=== PATIENT | female | born 1990 | race Caucasian/White ===

== ENCOUNTER 2021-09-28 18:14 | Inpatient (IN) ==
[2021-09-28] MEDS ORDERED: SODIUM CHLORIDE 0.9% 1000ML 1,000 ML IV STA (18:29)
--- NOTE | 2021-09-28 18:39 | Emergency Department Note ---
Impression & Plan Bilateral hydronephrosis, Dysuria, Acute pyelonephritis in third trimester, antepartum ED Provider Note NAME: RETA VELAZCO AGE: 31 SEX: F : 1990 ARRIVES VIA: Walk-In INFORMANT: Patient, ED PROVIDER(S): Gennaro Burns DO CHIEF COMPLAINT: Flank pain HPI: The patient is a 31-year-old female who presented to emergency department for an evaluation of flank pain. The patient is 29 weeks . She started noticing dysuria frequency as well as left-sided flank pain. The patient denies having any vaginal bleeding or discharge. She denies having any chest pain or difficulty breathing. She has had no worsening swelling in her legs. The patient states that she called her [facility] physician and was instructed to come to the emergency department for an evaluation. She denies having any fever. She is had no cough. The patient states her pain is moderate at this time. She is not noticed any vomiting or diarrhea. She is had no exposures to COVID-19. ROS: See above HPI for pertinent positives & negatives. A total of 10 systems reviewed and were otherwise negative. PAST MEDICAL HISTORY: See Below PAST SURGICAL HISTORY: See Below FAMILY HISTORY: See Below SOCIAL HISTORY: See Below HOME MEDICATIONS: See Below ALLERGIES: See Below VITALS: See Below PHYSICAL EXAMINATION: GENERAL: Patient is awake alert in no acute distress patient is resting comfortably and showing no signs of anxiety EYES: The conjunctivae are clear. The pupils are round and reactive. EARS, NOSE, MOUTH AND THROAT: The nose is without any evidence of any deformity. Mucous membranes are moist. Tongue is midline. NECK: The neck is nontender and supple. RESPIRATORY: Normal respiratory effort is noted there is no evidence of wheezing rhonchi or rales CARDIOVASCULAR: Tachycardic rate with regular rhythm was noted. There is no definite murmur. GASTROINTESTINAL: The abdomen is gravid in appearance. There is no tenderness guarding rigidity noted BACK: No midline tenderness or or step-off noted range of motion in flexion extension as well as rotation no signs of muscle spasm noted MUSCULOSKELETAL/EXTREMITIES: There is no evidence of gross deformity full range of motion is noted in the hips and shoulders. SKIN: There is no obvious evidence of any rash. There are no petechiae, pallor or cyanosis noted. NEUROLOGIC: Patient is awake alert and oriented x3 MEDICAL DECISION MAKING: The patient is a 31-year-old female who is in her third trimester who presented to the emergency department for an evaluation of flank pain. The patient has had very severe flank pain which has worsened throughout the day. She presented to the emergency department for an evaluation. The patient had an ultrasound which revealed bilateral hydronephrosis. This is likely physiologic secondary to the patient's gravid uterus. She was treated with IV fluids. She was also treated with IV antibiotics because of dysuria and her urine dip. Urine culture was added to the labs. I discussed the patient's condition with the on-call [facility] physician. I also discussed his case with the on-call [facility] hospitalist. They have agreed to evaluate the patient in the emergency department for further management and disposition. Triage Nursing notes reviewed. Prior medical records reviewed Vital Signs: reviewed and remarkable for tachycardia. Differential diagnosis: Renal colic, UTI, appendicitis, diverticulitis, mesenteric ischemia, aortic pathology, infections, inflammatory bowel disease, PUD, biliary pathology, as well as other pathologies. ER treatment provided: See below Diagnostics interpreted by me: ECG: none Cardiac Monitoring: An order was placed for continuous cardiac monitoring. The monitor shows a rate of 122 bpm with sinus rhythm. Laboratory studies: As stated above and show below. Imaging studies: See below Consultation(s): I discussed this case with Dr. Doherty who is on for [facility]. I discussed this case with Dr. Araiza who is on-call for the [facility] hospitalist group. Past Med/Surg History Medical History Abdominal pain Constipation Hypothyroidism Infected cat bite Migraine headache Varicella vaccination Surgical History History of colposcopy S/P wisdom tooth extraction Family History Grandmother (Maternal) Stroke Grandmother (Paternal) Stroke Mother Gurvinder's thyroiditis Father Hypertension Denies family history of Colon cancer Ovarian cancer Prostate cancer Myocardial infarction Breast cancer Social History Smoking Status: Never smoker Second Hand Exposure: No; Hx Alcohol Use: Yes Hx Substance Use: No Visual Impairment: No Limitations Hearing Ability: Normal marital status: marital status details: Wei Velazco (37) [phone] Current Living Situation: Spouse Current Living Situation Comment: lives with spouse, dog, cats-spouse changing litter current occupational status: 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 Feels Safe at Home: Yes Dental Care, Regularly: Yes Physical Activity Frequency: Does not Exercise Allergies Allergies Allergy/AdvReac Type Severity Reaction Status Date / Time amoxicillin Allergy Intermediate Hives Verified 09/28/21 19:43 Home Meds Home Medications Medication Instructions Recorded Confirmed prenat.vits,sia,dzz-cqhe-qdcis 1 tab PO DAILY 04/25/21 09/28/21 levothyroxine 100 mcg tablet 100 mcg PO DAILYBB 09/28/21 09/28/21 liothyronine 25 mcg tablet 12.5 mcg PO TID 09/28/21 09/28/21 Previous Rx's Medication Instructions Recorded rizatriptan 10 mg tablet See Rx Instructions PO .COMPLEX 03/26/20 #10 tab nitrofurantoin 100 mg PO Q12H 7 Days #14 cap 09/28/21 monohydrate/macrocrystals 100 mg capsule (Macrobid) Results & Data (ED) Vital Signs Vital Signs - 24 hr 09/28/21 18:17 Temperature 36.4 C L Temperature Source Temporal Artery Scan Pulse Rate 122 H Respiratory Rate 18 Blood Pressure 134/89 Blood Pressure Mean 104 Pulse Oximetry 99 Oxygen Delivery Method Room Air Sepsis Recent Fever Within 48 Hours No Sepsis New/Unexplained Change in Mental Status No Sepsis Action Taken by Nursing No Action Required Home Medications Current Medication List: was personally reviewed by me Laboratory Data Attestation: I reviewed the patient's lab results. Result diagrams: 09/28/21 18:30 09/28/21 18:30 Lab Results 09/28/21 09/28/21 09/28/21 Range/Units 18:30 18:30 18:30 WBC 21.50 H (4.8-10.8) K/uL RBC 4.15 L (4.2-5.4) M/uL Hgb 12.1 (12.0-16.0) g/dL Hct 36.0 L (37-47) % MCV 86.7 (80-100) fL MCH 29.2 (25-34) pg MCHC 33.6 (32-36) g/dL RDW Std Deviation 40.6 (36.4-46.3) fL RDW Coeff of Karin 12.8 (11.5-14.5) % Plt Count 379 (130-400) K/uL MPV 9.5 (7.4-10.4) fL Immature Gran % (Auto) 0.7 % Neut % (Auto) 78.8 % Lymph % (Auto) 10.0 % [place] % (Auto) 9.9 % Eos % (Auto) 0.5 % Baso % (Auto) 0.1 % Neut # (Auto) 16.97 H (1.4-6.5) K/uL Lymph # (Auto) 2.15 (1.2-3.4) K/uL [place] # (Auto) 2.12 H (0.11-0.59) K/uL Eos # (Auto) 0.10 (0-0.5) K/uL Baso # (Auto) 0.02 (0-0.2) K/uL Immature Gran # (Auto) 0.14 H (0.00-0.02) K/uL Sodium 133 L (136-145) mmol/L Potassium 3.3 L (3.5-5.1) mmol/L Chloride 102 (98-107) mmol/L Carbon Dioxide 21 (21-32) mmol/L Anion Gap 10 (3-11) BUN 7 (6-23) mg/dl Creatinine 0.62 (0.6-1.2) mg/dl Est Cr Clr Drug Dosing 133.2 ml/min Est GFR ( Amer) 141.2 ml/min Est GFR (Non-Af Amer) 121.9 ml/min BUN/Creatinine Ratio 11.3 (10-20) Glucose 83 (70-99(Fasting)) mg/dl Calcium 9.0 (8.5-10.1) mg/dl Total Bilirubin 0.3 (0.2-1.0) mg/dl AST 20 (13-39) U/L ALT 13 (7-52) U/L Alkaline Phosphatase 105 H (34-104) U/L Total Protein 7.5 (6.0-8.3) gm/dl Albumin 3.8 (3.4-5.0) gm/dl Globulin 3.7 (2.5-4.0) gm/dl Albumin/Globulin Ratio 1.0 (0.9-2) Lipase 6 L (11-82) U/L Urine Color Dark Yellow Urine Appearance Clear (Clear) Urine pH 6.5 (4.5-7.5) Ur Specific [place] 1.004 (1.000-1.030) Urine Protein Negative (Negative) Urine Glucose (UA) Negative (Negative) Urine Ketones Trace H (Negative) Urine Blood Negative (Negative) Urine Nitrite Positive A (Negative) Urine Bilirubin Negative (Negative) Urine Urobilinogen Negative (Negative) Ur Leukocyte Esterase Trace H (Negative) Urine WBC (Auto) 1-5 (0-5) /hpf Urine RBC (Auto) 0-4 (0-4) /hpf U Hyaline Cast (Auto) 1-5 (0-5) /lpf U Epithel Cells (Auto) 10-20 H (0-5) /lpf Urine Bacteria (Auto) Negative (Negative) SARS-CoV-2, RNA, NAAT (NEGATIVE) 09/28/21 Range/Units 20:22 WBC (4.8-10.8) K/uL RBC (4.2-5.4) M/uL Hgb (12.0-16.0) g/dL Hct (37-47) % MCV (80-100) fL MCH (25-34) pg MCHC (32-36) g/dL RDW Std Deviation (36.4-46.3) fL RDW Coeff of Karin (11.5-14.5) % Plt Count (130-400) K/uL MPV (7.4-10.4) fL Immature Gran % (Auto) % Neut % (Auto) % Lymph % (Auto) % [place] % (Auto) % Eos % (Auto) % Baso % (Auto) % Neut # (Auto) (1.4-6.5) K/uL Lymph # (Auto) (1.2-3.4) K/uL [place] # (Auto) (0.11-0.59) K/uL Eos # (Auto) (0-0.5) K/uL Baso # (Auto) (0-0.2) K/uL Immature Gran # (Auto) (0.00-0.02) K/uL Sodium (136-145) mmol/L Potassium (3.5-5.1) mmol/L Chloride (98-107) mmol/L Carbon Dioxide (21-32) mmol/L Anion Gap (3-11) BUN (6-23) mg/dl Creatinine (0.6-1.2) mg/dl Est Cr Clr Drug Dosing ml/min Est GFR ( Amer) ml/min Est GFR (Non-Af Amer) ml/min BUN/Creatinine Ratio (10-20) Glucose (70-99(Fasting)) mg/dl Calcium (8.5-10.1) mg/dl Total Bilirubin (0.2-1.0) mg/dl AST (13-39) U/L ALT (7-52) U/L Alkaline Phosphatase (34-104) U/L Total Protein (6.0-8.3) gm/dl Albumin (3.4-5.0) gm/dl Globulin (2.5-4.0) gm/dl Albumin/Globulin Ratio (0.9-2) Lipase (11-82) U/L Urine Color Urine Appearance (Clear) Urine pH (4.5-7.5) Ur Specific [place] (1.000-1.030) Urine Protein (Negative) Urine Glucose (UA) (Negative) Urine Ketones (Negative) Urine Blood (Negative) Urine Nitrite (Negative) Urine Bilirubin (Negative) Urine Urobilinogen (Negative) Ur Leukocyte Esterase (Negative) Urine WBC (Auto) (0-5) /hpf Urine RBC (Auto) (0-4) /hpf U Hyaline Cast (Auto) (0-5) /lpf U Epithel Cells (Auto) (0-5) /lpf Urine Bacteria (Auto) (Negative) SARS-CoV-2, RNA, NAAT NEGATIVE (NEGATIVE) Administered Medications Discontinued Medications Acetaminophen (Acetaminophen 1000 Mg/100 Ml Iv) 1,000 mg IV ONE ONE Stop: 09/28/21 20:32 Last Admin: 09/28/21 20:33 Dose: 1,000 mg Documented by: [id number] Sodium Chloride (Nss 1000ml) 1,000 mls @ 999 mls/hr IV .Q1H1M STA Stop: 09/28/21 19:29 Last Infusion: 02/27/22 21:04 Dose: 0 mls/hr Documented by: [id number] Admin: 09/28/21 18:38 Dose: 999 mls/hr Documented by: [id number] Ceftriaxone Sodium (Rocephin) 1,000 mg in 50 mls @ 100 mls/hr IV NOW STA Stop: 09/28/21 20:45 Last Infusion: 09/28/21 21:03 Dose: 0 mls/hr Documented by: [id number] Admin: 09/28/21 20:39 Dose: 100 mls/hr Documented by: [id number] Imaging Data Radiologist's Impression: Renal Ultrasound 09/28/21 18:29 RENAL ULTRASOUND CLINICAL HISTORY: left flank pain, COMPARISON STUDY: Right upper quadrant ultrasound March 05, 2015. TECHNIQUE: Sonography of the kidneys and the urinary bladder was performed. FINDINGS: Note is made of moderate to severe bilateral hydronephrosis, greater on the right. The right kidney measures 13.2 cm and the left measures 14.2 cm. No renal calculi are identified. No ureteral calculi are identified although these may be occult by sonography. Ureteral jets were not visualized. Intrauterine gestation is incidentally noted. Please note that the ultrasound was not performed. heart rate is normal 161 bpm. IMPRESSION: Moderate to severe bilateral hydronephrosis, greater on the right. 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 ACT 112: Negative or not required by law. Electronically signed by: Bhanu Sandoval M.D. 09/28/2021 7:24 PM Discharge Plan Visit Data Chief Complaint: Flank Pain Stated Complaint: LT FLANK PAIN, PAINFUL URINATION ED Provider: Gennaro Burns Discharge Problem: Bilateral hydronephrosis, Dysuria, Acute pyelonephritis in third trimester, antepartum Patient Disposition: Being Evaluated by Hospitalist Forms Stand Alone Forms: My [facility] [place] [facility] Prescriptions Prescriptions: No Action rizatriptan 10 mg tablet See Rx Instructions PO .COMPLEX Qty: 10 RF: 3 nitrofurantoin monohyd/m-cryst [Macrobid] 100 mg capsule 100 mg PO Q12H 7 Days Qty: 14 RF: 0 prenat.vits,sia,tks-jjam-[id number] Tablet 1 tab PO DAILY RF: 0 liothyronine 25 mcg tablet 12.5 mcg PO TID RF: 0 levothyroxine 100 mcg tablet 100 mcg PO DAILYBB RF: 0 Referrals Referrals: Jessica Norton MD [Primary Care Provider] -
[2021-09-28 18:44] LABS: Basophils # (auto) 0.02 K/uL (0-0.2); Basophils % (auto) 0.1 %; Eosinophils % (auto) 0.5 %; Hemoglobin 12.1 g/dL (12.0-16.0); Immature Granulocytes # (auto) 0.14 K/uL (0.00-0.02); Immature Granulocytes % (auto) 0.7 %; Lymphocytes # (auto) 2.15 K/uL (1.2-3.4); Mean Corpuscular Hemoglobin 29.2 pg (25-34); Mean Corpuscular Hgb Conc 33.6 g/dL (32-36); Mean Corpuscular Volume 86.7 fL (80-100); Mean Platelet Volume 9.5 fL (7.4-10.4); Monocytes # (auto) 2.12 K/uL (0.11-0.59); Monocytes % (auto) 9.9 %; Neutrophils # (auto) 16.97 K/uL (1.4-6.5); Neutrophils % (auto) 78.8 %; Platelet Count 379 K/uL (130-400); RDW Coefficient of Variation 12.8 % (11.5-14.5); RDW Standard Deviation 40.6 fL (36.4-46.3); Red Blood Count 4.15 M/uL (4.2-5.4)
[2021-09-28 18:54] LABS: Appearance Urine Clear (Clear); Bacteria Urine Automated Negative (Negative); Bilirubin Urine Negative (Negative); Blood Urine Negative (Negative); Color Urine Dark Yellow; Glucose Urine UA Negative (Negative); Ketones Urine Trace (Negative); Leukocyte Esterase Urine Trace (Negative); Nitrite Urine Positive (Negative); Protein Urine Negative (Negative); RBC Urine Automated 0-4 /hpf (0-4); Specific Gravity Urine 1.004 (1.000-1.030); Urobilinogen Urine Negative (Negative); pH Urine 6.5 (4.5-7.5)
[2021-09-28 19:03] LABS: Albumin Level 3.8 gm/dl (3.4-5.0); BUN Creatinine Ratio 11.3 (10-20); Bilirubin,Total 0.3 mg/dl (0.2-1.0); Creatinine Clr Calc Pharmacy 133.2 ml/min; Est GFR (African American) 141.2 ml/min; Est GFR (Non-African American) 121.9 ml/min; Globulin 3.7 gm/dl (2.5-4.0); Potassium 3.3 mmol/L (3.5-5.1); Total Protein 7.5 gm/dl (6.0-8.3)
--- NOTE | 2021-09-28 19:25 | Ultrasound Report ---
RENAL ULTRASOUND CLINICAL HISTORY: left flank pain, COMPARISON STUDY: Right upper quadrant ultrasound March 05, 2015. TECHNIQUE: Sonography of the kidneys and the urinary bladder was performed. FINDINGS: Note is made of moderate to severe bilateral hydronephrosis, greater on the right. The righ t kidney measures 13.2 cm and the left measures 14.2 cm. No renal calculi are identified. No ureteral calculi are identified although these may be occult by sonography. Ureteral jets were not visualized . Intrauterine gestation is incidentally noted. Please note that the ultrasound was not perform ed. heart rate is normal 161 bpm. IMPRESSION: Moderate to severe bilateral hydronephrosis, greater on the right. Most likely, this is s econdary to mass effect upon the distal ureters by the gravid uterus. ACT 112: Negative or not required by law. Electronically signed by: Bhanu Sandoval M.D. 09/28/2021 7:24 PM
[2021-09-28] MEDS ORDERED: cefTRIAXone SODIUM 1,000 MG/50 ML BAG IV STA (20:16)
[2021-09-28] MEDS ORDERED: MoRPHine SULFATE 4 MG/ML 1 ML CARP\\VIAL IV PRN (20:19)
[2021-09-28] MEDS ORDERED: MoRPHine SULFATE 4 MG/ML 1 ML CARP\\VIAL IV STA (20:19)
[2021-09-28] MEDS ORDERED: ACETAMINOPHEN 1000 MG/100 ML IV IV ONE (20:31)
[2021-09-28] MEDS ORDERED: ONDANSETRON INJ 2 MG/ML 2 ML VIAL IV PRN (21:48)
--- NOTE | 2021-09-28 21:55 | History & Physical Report ---
Date of Service September 28, 2021 Assessment & Plan (1) Acute pyelonephritis in third trimester, antepartum: Plan: Marialuisa Velazco is a 31yo G1PO female, currently at 29 5/7 weeks gestation, with PMHx significant for hypothyroidism (on Synthroid and Cytomel) who will be admitted to [facility] on 09/28 for acute left-sided pyelonephritis Acute Pyelonephritis Urinary symptoms and left flank pain x1 day, left CVA tenderness on exam, WBC 21.5 with neutrophilic predominance and left shift, dirty UA --> left-sided pyelonephritis. - received CTX 1g IV in the ED, will continue with same - adjustment of abx per primary team, pending urine cx results - follow blood cx (although sample was taken AFTER first dose of CTX) - PRN Tylenol 1g IV Q8H for pain - PRN Zofran for nausea - consulted [facility] to assist with monitoring in this primigravid patient who is currently in third trimester - patient may need abx ppx for remainder of - will defer to primary team and [facility]OB FOR[facility] - trend CBC in AM Bilateral Hydronephrosis Incidental finding per renal US. 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 Patient does not have bilateral flank pain, she is not oliguric, and kidney function is intact. Suspect that flank pain is primarily due to pyelo. - pain management as stated above - will defer to JOB FORWARDER recommendations on further management if deemed necessary Hypothyroidism Chronic condition present before . Last TSH, although not in chart, was reportedly done ~2 weeks ago and was WNL (<2.5) per note by Dr. Rankin on 09/22. - continue home Synthroid and Cytomel Constipation Present only during . Controlled with Colace. - ordered Colace 100mg PO BID FEN/GI: regular OB diet, no IVFs DVT Prophylaxis: SCDs Code Status: full code Disposition: med/surg - 4th floor for monitoring (2) Bilateral hydronephrosis: (3) Hypothyroid in , antepartum: (4) Constipation: History of Present Illness Chief Complaint: flank pain Primary Care Provider: Jessica Norton MD Marialuisa Velazco is a 31yo G1PO female, currently at 29 5/7 weeks gestation, with PMHx significant for hypothyroidism (on Synthroid and Cytomel) who presented to [facility] ED on 09/28 for dysuria, increased urinary frequency/urgency and moderate- severe left flank pain x1 day. Symptoms started this morning. She called [facility] and was prescribed Macrobid and took first dose earlier today. She was then told to come to the ED for evaluation. She denies fever/chills or nausea/vomiting. Has had slightly decreased PO intake today due to pain. Denies recent URI symptoms or rash. Has not had previous UTI during this . has been uncomplicated overall. Denies leakage of fluid, vaginal bleeding, or lower abdominal pain. Reports that baby has been moving normally. In the ED the patient was tachycardic to 122bpm but was afebrile and normotensive. Laboratory evaluation is significant for WBC 21.5 with neutrophilic predominance and left shift, Na 133, K 3.3. UA positive for nitrites and trace LE. Urine culture pending. Renal US showed moderate to severe bilateral hydronephrosis, R>L. Patient was given Tylenol 1g IV x1 which led to significant improvement in pain. CTX 1g IV was given. Of note blood cx was taken only AFTER the abx were started, although urine cx was thankfully taken before abx. Allergies Allergy/AdvReac Type Severity Reaction Status Date / Time amoxicillin Allergy Intermediate Hives Verified 09/28/21 19:43 Home Medications Medication Instructions Recorded Confirmed Type rizatriptan 10 mg tablet See Rx Instructions PO .COMPLEX 03/26/20 09/28/21 Rx #10 tab prenat.vits,sia,[id number] 1 tab PO DAILY 04/25/21 09/28/21 History levothyroxine 100 mcg tablet 100 mcg PO DAILYBB 09/28/21 09/28/21 History liothyronine 25 mcg tablet 12.5 mcg PO TID 09/28/21 09/28/21 History nitrofurantoin 100 mg PO Q12H 7 Days #14 cap 09/28/21 09/28/21 Rx monohydrate/macrocrystals 100 mg capsule (Macrobid) Past Med/Surg History Medical History Abdominal pain Constipation Hypothyroidism Infected cat bite Migraine headache Varicella vaccination Surgical History History of colposcopy S/P wisdom tooth extraction Family History Grandmother (Maternal) Stroke Grandmother (Paternal) Stroke Mother Gurvinder's thyroiditis Father Hypertension Denies family history of Colon cancer Ovarian cancer Prostate cancer Myocardial infarction Breast cancer Social History Smoking Status: Never smoker Second Hand Exposure: No; Hx Alcohol Use: No Hx Substance Use: No Preferred Language: Citizen Of [place] Communication Ability: Effective Visual Impairment: No Limitations Hearing Ability: Normal Ob/Gyn Physician Required: No Beliefs That Will Affect Care: None marital status: marital status details: Wei Velazco (37) [phone] Current Living Situation: Spouse Current Living Situation Comment: lives with spouse current occupational status: 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 NAD. Cooperative. HEENT: Atraumatic, normocephalic. Pulm: CTAB A&P. -wheezes, -rales, -rhonchi. Symmetrical chest rise. No increase work of breathing. No respiratory distress. Cardiac: RRR, -mrg. Radial pulses intact and symmetrical. No LE edema. Cap refill <3 seconds. Abdominal: gravid but non-tender, normoactive bowel sounds Back: left CVA tenderness only Skin: warm, dry, no rash Results & Data Results & Data ([facility]) Vital Signs (Past 12 Hours) Vital Signs Temp Pulse Resp BP Pulse Ox 09/28/21 18:17 36.4 C L 122 H 18 134/89 99 Laboratory Results Laboratory Results WBC 21.50 K/uL (4.8-10.8) H 09/28/21 18:30 RBC 4.15 M/uL (4.2-5.4) L 09/28/21 18:30 Hgb 12.1 g/dL (12.0-16.0) 09/28/21 18:30 Hct 36.0 % (37-47) L 09/28/21 18:30 MCV 86.7 fL (80-100) 09/28/21 18: MCH 29.2 pg (25-34) 09/28/21 18: MCHC 33.6 g/dL (32-36) 09/28/21 18: RDW Std Deviation 40.6 fL (36.4-46.3) 09/28/21 18: RDW Coeff of Karin 12.8 % (11.5-14.5) 09/28/21 18: Plt Count 379 K/uL (130-400) 09/28/21 18: MPV 9.5 fL (7.4-10.4) 09/28/21 18: Immature Gran % (Auto) 0.7 % 09/28/21 18: Neut % (Auto) 78.8 % 09/28/21 18: Lymph % (Auto) 10.0 % 09/28/21 18: Beckham % (Auto) 9.9 % 09/28/21 18:30 Eos % (Auto) 0.5 % 09/28/21 18:30 Baso % (Auto) 0.1 % 09/28/21 18:30 Neut # (Auto) 16.97 K/uL (1.4-6.5) H 09/28/21 18:30 Lymph # (Auto) 2.15 K/uL (1.2-3.4) 09/28/21 18:30 Beckham # (Auto) 2.12 K/uL (0.11-0.59) H 09/28/21 18: Eos # (Auto) 0.10 K/uL (0-0.5) 09/28/21 18:30 Baso # (Auto) 0.02 K/uL (0-0.2) 09/28/21 18: Immature Gran # (Auto) 0.14 K/uL (0.00-0.02) H 09/28/21 18:30 Sodium 133 mmol/L (136-145) L 09/28/21 18:30 Potassium 3.3 mmol/L (3.5-5.1) L 09/28/21 18: Chloride 102 mmol/L (98-107) 09/28/21 18:30 Carbon Dioxide 21 mmol/L (21-32) 09/28/21 18:30 Anion Gap 10 (3-11) 09/28/21 18:30 BUN 7 mg/dl (6-23) 09/28/21 18:30 Creatinine 0.62 mg/dl (0.6-1.2) 09/28/21 18:30 Est Cr Clr Drug Dosing 133.2 ml/min 09/28/21 18:30 Est GFR ( Amer) 141.2 ml/min 09/28/21 18:30 Est GFR (Non-Af Amer) 121.9 ml/min 09/28/21 18:30 BUN/Creatinine Ratio 11.3 (10-20) 09/28/21 18: Glucose 83 mg/dl (70-99(Fasting)) 09/28/21 18: Calcium 9.0 mg/dl (8.5-10.1) 09/28/21 18: Total Bilirubin 0.3 mg/dl (0.2-1.0) 09/28/21 18: AST 20 U/L (13-39) 09/28/21 18:30 ALT 13 U/L (7-52) 09/28/21 18:30 Alkaline Phosphatase 105 U/L (34-104) H 09/28/21 18:30 Total Protein 7.5 gm/dl (6.0-8.3) 09/28/21 18:30 Albumin 3.8 gm/dl (3.4-5.0) 09/28/21 18: Globulin 3.7 gm/dl (2.5-4.0) 09/28/21 18: Albumin/Globulin Ratio 1.0 (0.9-2) 09/28/21 18:30 Lipase 6 U/L (11-82) L 09/28/21 18:30 Urine Color Dark Yellow 09/28/21 18:30 Urine Appearance Clear (Clear) 09/28/21 18: Urine pH 6.5 (4.5-7.5) 09/28/21 18:30 Ur Specific [place] 1.004 (1.000-1.030) 09/28/21 18:30 Urine Protein Negative (Negative) 09/28/21 18: Urine Glucose (UA) Negative (Negative) 09/28/21 18:30 Urine Ketones Trace (Negative) H 09/28/21 18:30 Urine Blood Negative (Negative) 09/28/21 18:30 Urine Nitrite Positive (Negative) A 09/28/21 18:30 Urine Bilirubin Negative (Negative) 09/28/21 18:30 Urine Urobilinogen Negative (Negative) 09/28/21 18:30 Ur Leukocyte Esterase Trace (Negative) H 09/28/21 18:30 Urine WBC (Auto) 1-5 /hpf (0-5) 09/28/21 18:30 Urine RBC (Auto) 0-4 /hpf (0-4) 09/28/21 18:30 U Hyaline Cast (Auto) 1-5 /lpf (0-5) 09/28/21 18:30 U Epithel Cells (Auto) 10-20 /lpf (0-5) H 09/28/21 18:30 Urine Bacteria (Auto) Negative (Negative) 09/28/21 18:30 SARS-CoV-2, RNA, NAAT NEGATIVE (NEGATIVE) 09/28/21 20:22 Impressions Renal Ultrasound 09/28/21 18:29 RENAL ULTRASOUND CLINICAL HISTORY: left flank pain, COMPARISON STUDY: Right upper quadrant ultrasound March 05, 2015. TECHNIQUE: Sonography of the kidneys and the urinary bladder was performed. FINDINGS: Note is made of moderate to severe bilateral hydronephrosis, greater on the right. The right kidney measures 13.2 cm and the left measures 14.2 cm. No renal calculi are identified. No ureteral calculi are identified although these may be occult by sonography. Ureteral jets were not visualized. Intrauterine gestation is incidentally noted. Please note that the ultrasound was not performed. heart rate is normal 161 bpm. IMPRESSION: Moderate to severe bilateral hydronephrosis, greater on the right. 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 ACT 112: Negative or not required by law. Electronically signed by: Bhanu Sandoval M.D. 09/28/2021 7:24 PM Code Status & VTE Plan Code Status full code Supervising Physician Co-Signing Physician Notes Patient seen and examined, chart reviewed, case discussed with Dr. Sandoval and I agree with his assessment and plan as documented above. In brief, patient is a 31yo at 29 5/7 weeks presenting with left flank pain. Presumed pyelonephritis. She is nontoxic in appearance. Urinating without difficulty. Pain is controlled with Tylenol She denies cramping, contractions, discharge or bleeding On exam she is afebrile, mildly tachycardic Skin - intact HEENT - NC/AT, PERRL, MMM Heart - +S1/S2, regular, tachy, no m/r/g Lungs - CTA Abd - gravid uterus, nontender, LCVA tenderness per Dr. Sandoval's exam - not repeated Ext - No edema Labs and images reviewed Assessment/Plan 31yo at 29 5/7 weeks with history of hypothyroidism presenting with acute pyelonephritis. Left flank pain and CVA tenderness. Elevated WBC at 21.5 with UA suggestive of infection Management with Ceftriaxone, adjust antibiotic coverage based on culture data Tylenol as needed for pain/fever Continue Synthroid and Cytomel Bilateral Hydronephrosis - most likely incidental finding in Routine monitoring per OB - appreciated Remainder as above Resident Activity Tracking Resident Involvement: Resident Care Provided Care Provided: Adult [facility]
[2021-09-28] MEDS ORDERED: POTASSIUM CHLORIDE CRTAB 20 MEQ TABCR PO STA (22:03)
--- NOTE | 2021-09-28 22:17 | OB/GYN Consultation ---
Date of Consultation September 28, 2021 Assessment & Plan (1) with 29 completed weeks gestation: (2) Bilateral hydronephrosis: (3) Acute pyelonephritis in third trimester, antepartum: (4) Hypothyroid in , antepartum: Agree with admission given , probable pyelo, risk of PTL associated with pyelo and pain management. Fetus category one and reactive nst. Rare contraction but patient not noting. Agree with ceftriaxone for coverage of the most common organisms in . Will add percocet for breakthrough pain. Will determine improvement based on symptoms, improved wbc count, improved pain. Appreciate the input of our hospitalist colleagues. Encouraged to push fluids. Advised to call if she notes any abdominal cramping or contractions. Suspect she will be here til at least wednesday as she got her first dose of antibiotics late wednesday evening. Explained situation to the patient who expresses understanding. History of Present Illness Reason for Consultation: 29 weeks --pyelo vs. hydronephrosis Requesting Physician: Jaime History of Present Illness Marialuisa is a 31yowf who is 29 5/7 weeks . Her has been essentially uncomplicated. Patient first called me late this am noting dysuria and frequency, no hematuria, fever or pain. She was advised to take pyridium and have a culture done in the am prior to starting abio as she is . She called later in the day noting worsening symptoms and was prescribed macrobid. She was at that time noting some mild left flank/back pain. She then called again later in the day noting severe left side pain going into her back and down her thigh. she noted that she had tried heat and a shower for the pain but that it was very severe and she was tearful, she notes no hematuria. She notes good fm. no lof/vb. notes the pain is constant and not coming and going. Notes it is on the side and not midline. I recommended evaluation in the ED because of concern for kidney stone or pyelo. Her wbc count is 21K, h/h stable, nl fuse cutter, nl lfts, nl blood pressures. Her UA shows no rbc, no wbc, no bacteria and positive for nitrites. She was tachy in the ED but afebrile, she denies fever at home. She denied n/v. Her ultrasound shows moderate to severe, bilateral hydronephrosis, greater on the right than the left. she has not had good pain management and continues to complain of pain in theED. she is being admitted by our hospitalist colleagues to manage potentially early pyelo vs. pain from hydronephrosis. Recent urine culture at 28 week visit was negative. Does have a positive culture from 05/22 for 8K GPB, not identified. blood cultures and urine cultures are pending. On arrival to the floor she notes she is feeling much better after the IV tylenol she received in the ED. she notes all her pain is in her left flank, she notes no uterine pain and denies contractions. no vb/lof. +fm. No n/v. and Delivery Plans Hypothyroid *Check TFTs Q4wks OB Labs: Blood Type O Positive 05/08/21 Antibody Screen NEGATIVE 05/08/21 Hemoglobin 12.2 g/dL (12.0-16.0) 05/08/21 Hematocrit 33.7 % (37-47) L 05/08/21 Mean Corpuscular Volume 83.8 fL (80-100) 05/08/21 Platelet Count 291 K/uL (130-400) 05/08/21 Rubella IgG Antibody Immune (Immune) 05/08/21 Rapid Plasma Reagin Nonreactive (Nonreactive) 05/08/21 Hepatitis B Surface Antigen Neg (Neg) 05/08/21 HIV (1&2) Ab and P24 Ag, 4th Gener Neg (Neg) 05/08/21 OB Optional Labs: Chlamydia trachomatis RNA NOT DETECTED (NOT DETECTED) 05/08/21 Neisseria gonorrhoeae RNA NOT DETECTED (NOT DETECTED) 05/08/21 Thyroid Stimulating Hormone (TSH) 1.710 uIu/ml (0.300-4.500) 04/09/21 low risk panorama cf/sma neg Allergies Allergy/AdvReac Type Severity Reaction Status Date / Time amoxicillin Allergy Intermediate Hives Verified 09/28/21 19:43 Home Medications Medication Instructions Recorded Confirmed Type rizatriptan 10 mg tablet See Rx Instructions PO .COMPLEX 03/26/20 09/28/21 Rx #10 tab prenat.vits,sia,[id number]-[id number] 1 tab PO DAILY 04/25/21 09/28/21 History levothyroxine 100 mcg tablet 100 mcg PO DAILYBB 09/28/21 09/28/21 History liothyronine 25 mcg tablet 12.5 mcg PO TID 09/28/21 09/28/21 History nitrofurantoin 100 mg PO Q12H 7 Days #14 cap 09/28/21 09/28/21 Rx monohydrate/macrocrystals 100 mg capsule (Macrobid) Patient History Medical History Abdominal pain Constipation Hypothyroidism Infected cat bite Migraine headache Varicella vaccination Surgical History History of colposcopy S/P wisdom tooth extraction Family History Grandmother (Maternal) Stroke Grandmother (Paternal) Stroke Mother Gurvinder's thyroiditis Father Hypertension Denies family history of Colon cancer Ovarian cancer Prostate cancer Myocardial infarction Breast cancer Social History Smoking Status: Never smoker Second Hand Exposure: No; Hx Alcohol Use: No Hx Substance Use: No Preferred Language: Thai Communication Ability: Effective Visual Impairment: No Limitations Hearing Ability: Normal Global Account Executive Required: No Beliefs That Will Affect Care: None marital status: marital status details: Wei Velazco (37) [phone] Current Living Situation: Spouse Current Living Situation Comment: lives with spouse current occupational status: 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[employer] Other Information That Helps Us Care for You: No Feels Safe at Home: Yes Safety Concerns: Feels Safe At This Time Dental Care, Regularly: Yes Physical Activity Frequency: Does not Exercise Assistive Devices: Contacts Physical Exam Physical Exam: cx--deferred toco--homero efm--150s with mod variability, accels to 170s, no decels Constitutional: WD/WN, vitals as above (resting comfortably in bed) Cardiovascular: Extremities: no calf tenderness and no edema Gastrointestinal (Abdomen): soft, nt , gravid back--slight left cvat Skin: no rashes, warm and dry Psychiatric: A+Ox3, euthymic affect Results & Data ([facility]) Vital Signs (Past 12 Hours) Vital Signs Temp Pulse Resp BP Pulse Ox 09/28/21 18:17 36.4 C L 122 H 18 134/89 99 PG Care Time/CCT Total # of Minutes Spent Total Time Spent with Patient: Total time spent is greater than 50% in coordination of care (as documented) at patient's floor/unit and/or counseling patient: Coding Level of Care Code 89526 Inpt Consult Level 2 Diagnoses with 29 completed weeks gestation Z3A.29 Bilateral hydronephrosis N13.30 Acute pyelonephritis in third trimester, antepartum O23.03; N10 Hypothyroid in , antepartum O99.280; E03.9
[2021-09-28] MEDS: LIOTHYRONINE SODIUM 25 MCG TAB PO SCH (23:42)
[2021-09-28] MEDS: DOCUSATE SODIUM 100 MG CAP PO SCH (23:45)
[2021-09-29] MEDS ORDERED: ACETAMINOPHEN 1,000 MG/100 ML VIAL IV PRN
--- NOTE | 2021-09-29 00:09 | Billing Data ---
Date of Service September 28, 2021 Coding Level of Care Code 98876 Initial Inpt Care Lvl 2
[2021-09-29] MEDS: oxyCODONE/ACETAMINOPHEN 5mg/325mg TAB PO PRN ×2 (00:15→05:22)
[2021-09-29] MEDS: LEVOTHYROXINE SODIUM 100 MCG TABLET PO SCH (05:22)
[2021-09-29 06:42] LABS: Basophils # (auto) 0.01 K/uL (0-0.2); Basophils % (auto) 0.1 %; Eosinophils # (auto) 0.14 K/uL (0-0.5); Eosinophils % (auto) 1.4 %; Hematocrit (blood only) 28.7 % (37-47); Hemoglobin 9.8 g/dL (12.0-16.0); Immature Granulocytes # (auto) 0.07 K/uL (0.00-0.02); Immature Granulocytes % (auto) 0.7 %; Lymphocytes # (auto) 1.68 K/uL (1.2-3.4); Lymphocytes % (auto) 16.2 %; Mean Corpuscular Hemoglobin 29.5 pg (25-34); Mean Corpuscular Hgb Conc 34.1 g/dL (32-36); Mean Corpuscular Volume 86.4 fL (80-100); Mean Platelet Volume 9.1 fL (7.4-10.4); Monocytes % (auto) 13.5 %; Neutrophils # (auto) 7.05 K/uL (1.4-6.5); Neutrophils % (auto) 68.1 %; Platelet Count 306 K/uL (130-400); RDW Coefficient of Variation 12.9 % (11.5-14.5); RDW Standard Deviation 41.1 fL (36.4-46.3); Red Blood Count 3.32 M/uL (4.2-5.4); White Blood Count 10.35 K/uL (4.8-10.8)
[2021-09-29 07:07] LABS: BUN Creatinine Ratio 9.3 (10-20); Calcium 7.8 mg/dl (8.5-10.1); Creatinine Clr Calc Pharmacy 110.1 ml/min; Est GFR (African American) 124.8 ml/min; Est GFR (Non-African American) 107.7 ml/min; Magnesium 1.8 mg/dl (1.7-2.4); Potassium 3.8 mmol/L (3.5-5.1)
--- NOTE | 2021-09-29 07:12 | Obstetrical Progress Note ---
Date of Service September 29, 2021 Assessment & Plan (1) with 29 completed weeks gestation: (2) Bilateral hydronephrosis: (3) Acute pyelonephritis in third trimester, antepartum: Plan: Patient stable this am, appears afebrile , but no set of vitals in the computer today. Voiding well. No s/s of maribel--plan q shift nst. Will receive second dose of ceftriaxone this evening. Admission and Anticipated Discharge Date Admission Date: September 28, 2021 Subjective Patient notes she is feeling ok this am. Notes did not sleep particularly well. Notes her left back pain returned last night and she had one percocet at about 5:30 this am. Wearing a heating pad. Notes no uterine crampin/contractions. no lof/vb. Denies n/v. Physical Exam Constitutional: WD/WN, vitals as above Cardiovascular: Extremities: no calf tenderness and no edema Gastrointestinal (Abdomen): soft, gravid, nt back--slight left cvat, no r cvat Skin: no rashes, warm and dry Psychiatric: A+Ox3, euthymic affect Results & Data ([facility]) Vital Signs (Past 12 Hours) Vital Signs Temp Pulse Resp BP Pulse Ox 09/28/21 22:49 37.0 C 106 H 16 136/89 97 PG Care Time/CCT Total # of Minutes Spent Total Time Spent with Patient: Total time spent is greater than 50% in coordination of care (as documented) at patient's floor/unit and/or counseling patient: Coding Level of Care Code 38732 Subseq Hosp Care Lvl 1 Diagnoses with 29 completed weeks gestation Z3A.29 Bilateral hydronephrosis N13.30 Acute pyelonephritis in third trimester, antepartum O23.03; N10
--- NOTE | 2021-09-29 08:08 | Obstetrical Progress Note ---
Date of Service September 29, 2021 Assessment & Plan (1) with 29 completed weeks gestation: (2) Acute pyelonephritis in third trimester, antepartum: (3) Bilateral hydronephrosis: Plan: nst reactive Admission and Anticipated Discharge Date Admission Date: September 28, 2021 Subjective 29 6/7 wk , admitted by medicine nst daily done today Physical Exam Genitourinary: NST reactive. Results & Data ([facility]) Vital Signs (Past 12 Hours) Vital Signs Temp Pulse Resp BP Pulse Ox 09/29/21 07:10 98.1 F 91 H 18 115/73 99 09/28/21 22:49 98.6 F 106 H 16 136/89 97 PG Care Time/CCT Total # of Minutes Spent Total Time Spent with Patient: Total time spent is greater than 50% in coordination of care (as documented) at patient's floor/unit and/or counseling patient: Coding Level of Care Code None Diagnoses with 29 completed weeks gestation Z3A.29 Acute pyelonephritis in third trimester, antepartum O23.03; N10 Bilateral hydronephrosis N13.30 CPT Codes Misx Procedure Codes - 40525 NST: 67016 NST ([id number]) DENTAL INSURANCE COORDINATOR Miscellaneous Codes Misx Procedure Codes 69135 NST
[2021-09-29] MEDS: PRENATAL VITAMIN 1 TAB PO SCH (08:40)
[2021-09-29] MEDS: DOCUSATE SODIUM 100 MG CAP PO SCH ×2 (08:40→20:19)
[2021-09-29] MEDS: LIOTHYRONINE SODIUM 25 MCG TAB PO SCH ×3 (09:15→20:20)
--- NOTE | 2021-09-29 13:28 | Hospitalist Progress Note ---
Date of Service September 29, 2021 Assessment & Plan (1) with 29 completed weeks gestation: (2) Bilateral hydronephrosis: (3) Acute pyelonephritis in third trimester, antepartum: (4) Hypothyroid in , antepartum: (5) Hypothyroidism: (6) Constipation: Plan: A&P: Summary statement: 31 y/o F at 28 weeks and 6/7 days with uncomplicated course who presents with L-sided flank pain, leukocytosis, BL hydronephrosis who was started on IV ceftriaxone 1g and analgesia out of concern for likely pyelonephritis. #Pyelonephritis in 3rd trimester of -supported by L-sided flank pain, leukocytosis. Risk factors include , BL hydronephrosis. Pt was informed by OB about risk factors of pyelo during which include PTL. -It is reassuring that sx are improving and her Cr is stable. Has been tolerating PO fluids. -continue ceftriaxone IV 1g with pending urine and blood culture. Currently day 2 of ABX. Ceftriaxone favorable given that common etiologies of pyelo in include both gram positive and gram-negative organisms. can convert to cefdinir at discharge. -Given her improving symptoms and down trending WBC count, give next dose of ceftriaxone on 09/29 around 3pm (couple hours early) with plan to d/c a couple hour afterwards, barring any complications or deterioration, per patient request. #Hypothyroidism: stable as per last TSH 2 weeks ago per patient. Managed by her PCP in [place]. Will get monthly TSH checks for remainder of . Continue levothyroxine 100mcg PO daily, and liothyronine 12.5 mcg TID. Currently not having any symptoms. #constipation: stable, continue Colace #migraines: stable, is aware to avoid triptans and use acetaminophen during #FENGI: PO as tolerated, normal diet #DVT prophylaxis: encourage ambulation as tolerated #Disposition: pt is hemodynamically stable, no evidence of sepsis/bacteremia although blood cx pending. Plan is to give IV ceftriaxone around 3pm Can switch from IV ceftriaxone to PO cefdinir 300mg BID with or without food upon discharge to complete ABX course which should total 10 days. After completing abx course would recommend a repeat a UA w/ urine culture, which is standard for patients. Regarding analgesia, her pain has improved, and she is OK with acetaminophen only. Did not feel she needed Percocet prescription upon discharge. Admission and Anticipated Discharge Date Admission Date: September 28, 2021 Supervising Physician Co-Signing Physician Notes I personally examined the patient and verified all pineda points of history and exam, discussed case, and agree with decision making with Solitario Mancera MS2 feling much better initially thinkin about going home - later pain worse again vitals noted nad heent nc at mmm breathin gunlabored no accessory muscles good effort skin no rashes no pallor or icterus neuro no focal defciits pyelo / sepsis on admsision - rocephin - iproving. time. follow cultures. otherwise as above Subjective CC: L-sided flank plain, dysuria, frequency HPI: Pt is a 31 y/o F at 29 weeks 6/7 days with PMHx of hypothyroidism and migraine SCHULTZ. prior to current admission has been uncomplicated except for constipation. She receives OB care at [facility] and primary care in [place], where her hypothyroidism is managed (TSH checked every month). Pt has a remote history of UTI several years ago. Her L-sided flank pain, dysuria and frequency began on the morning of 09/28 around 10am, and by 2pm that day her pain became unbearable. Dr. Doherty with [facility] prescribed nitrofurantoin 100mg PO q12, but pt was later advised to come to ED as her pain increased in severity. Pt did not report any vaginal bleeding, discharge, LOF, and notes good movement. Home meds include levothyroxine 100mcg PO daily, liothyronine 12.5 mcg TID, and Colace. Allergies: amoxicillin In the ED, pt was afebrile, tachycardic at 122, otherwise VS were WNL. Pt was started on IV fluids, IV ceftriaxone 1g q24 hours, and IV acetaminophen 1g, and AZO. AM vitals as of 09/29/21 were T 36.7C, HR 91, RR 18, BP 115/73, SpO2 99% on RA monitoring stable per OB, nursing Today pt notes persistent L-sided flank pain with breakthrough pain that reaches 7/10 severity about 2 hours after receiving Percocet 5/325 q4. Hasnt noted major improvement after starting IV ceftriaxone. Her dysuria has resolved but urinary frequency persists. No bloody urine. She notes that ambulating and AZO alleviate her flank pain, but sitting for too long exacerbates it. Her pain does not radiate. Continues to deny subjective fevers, chills, SOB, chest pain, syncope and ankle swelling. Review of Systems Review of Systems: see above Physical Exam Constitutional: WD/WN, vitals as above Eyes: PERRL, conjunctivae normal, anicteric sclerae Respiratory: normal respiratory effort, lungs clear to auscultation Cardiovascular: regular rhythm, normal S1/S2, HR 94 no LE edema appreciated Musculoskeletal: +CVA tenderness on the L side Neurologic: PERRL, EOMI, accommodation nl, no face palsy, no dysarthria Psychiatric: A+Ox3, euthymic affect Results & Data Results & Data ([facility]) Vital Signs (Past 12 Hours) Vital Signs Temp Pulse Resp BP Pulse Ox 09/29/21 12:25 36.7 C 94 H 20 112/72 09/29/21 10:45 36.5 C 101 H 20 119/80 97 09/29/21 07:10 36.7 C 91 H 18 115/73 99 Laboratory Results * Urine cx is pending * Urine dip +nitrites, +leuk esterase, 10-20 epithelial cells, otherwise WNL * renal US showed BL hydronephrosis (R kidney 13.2 cm, L kidney 14.2 cm). Was ruled as potential physiologic 2/2 gravid uterus. No US was obtained. * Cr stable at 0.62 on 09/28 * WBC 21.5 (H) with neutrophil predominance at 16.97 (H), Hct 26 (L), Alk phos 105 (H), Na 133 (L), K 3.3 (L). * Last TSH was obtained from outside facility 2 weeks ago and was WNL. Diagnostic Findings 09/29/21 09/29/21 09/28/21 06:16 06:16 :22 WBC 10.35 D RBC 3.32 L Hgb 9.8 L Hct 28.7 L MCV 86.4 MCH 29.5 MCHC 34.1 RDW Std Deviation 41.1 RDW Coeff of Karin 12.9 Plt Count 306 MPV 9.1 Immature Gran % (Auto) 0.7 Neut % (Auto) 68.1 Lymph % (Auto) 16.2 [place] % (Auto) 13.5 Eos % (Auto) 1.4 Baso % (Auto) 0.1 Neut # (Auto) 7.05 H Lymph # (Auto) 1.68 [place] # (Auto) 1.40 H Eos # (Auto) 0.14 Baso # (Auto) 0.01 Immature Gran # (Auto) 0.07 H Sodium 138 Potassium 3.8 Chloride 110 H Carbon Dioxide 22 Anion Gap 6 BUN 7 Creatinine 0.75 Est Cr Clr Drug Dosing 110.1 Est GFR ( Amer) 124.8 Est GFR (Non-Af Amer) 107.7 BUN/Creatinine Ratio 9.3 L Glucose 87 Calcium 7.8 L Magnesium 1.8 Total Bilirubin AST ALT Alkaline Phosphatase Total Protein Albumin Globulin Albumin/Globulin Ratio Lipase Urine Color Urine Appearance Urine pH Ur Specific [place] Urine Protein Urine Glucose (UA) Urine Ketones Urine Blood Urine Nitrite Urine Bilirubin Urine Urobilinogen Ur Leukocyte Esterase Urine WBC (Auto) Urine RBC (Auto) U Hyaline Cast (Auto) U Epithel Cells (Auto) Urine Bacteria (Auto) SARS-CoV-2, RNA, NAAT NEGATIVE 09/28/21 09/28/21 09/28/21 18:30 18:30 18:30 WBC 21.50 H RBC 4.15 L Hgb 12.1 Hct 36.0 L MCV 86.7 MCH 29.2 MCHC 33.6 RDW Std Deviation 40.6 RDW Coeff of Karin 12.8 Plt Count 379 MPV 9.5 Immature Gran % (Auto) 0.7 Neut % (Auto) 78.8 Lymph % (Auto) 10.0 [place] % (Auto) 9.9 Eos % (Auto) 0.5 Baso % (Auto) 0.1 Neut # (Auto) 16.97 H Lymph # (Auto) 2.15 [place] # (Auto) 2.12 H Eos # (Auto) 0.10 Baso # (Auto) 0.02 Immature Gran # (Auto) 0.14 H Sodium 133 L Potassium 3.3 L Chloride 102 Carbon Dioxide 21 Anion Gap 10 BUN 7 Creatinine 0.62 Est Cr Clr Drug Dosing 133.2 Est GFR ( Amer) 141.2 Est GFR (Non-Af Amer) 121.9 BUN/Creatinine Ratio 11.3 Glucose 83 Calcium 9.0 Magnesium Total Bilirubin 0.3 AST 20 ALT 13 Alkaline Phosphatase 105 H Total Protein 7.5 Albumin 3.8 Globulin 3.7 Albumin/Globulin Ratio 1.0 Lipase 6 L Urine Color Dark Yellow Urine Appearance Clear Urine pH 6.5 Ur Specific [place] 1.004 Urine Protein Negative Urine Glucose (UA) Negative Urine Ketones Trace H Urine Blood Negative Urine Nitrite Positive A Urine Bilirubin Negative Urine Urobilinogen Negative Ur Leukocyte Esterase Trace H Urine WBC (Auto) 1-5 Urine RBC (Auto) 0-4 U Hyaline Cast (Auto) 1-5 U Epithel Cells (Auto) 10-20 H Urine Bacteria (Auto) Negative SARS-CoV-2, RNA, NAAT Medications Administered Current Inpatient Medications Acetaminophen (Acetaminophen 500 Mg Tab) 1,000 mg PO Q8H PRN PRN Reason: Pain Stop: 10/28/21 23:31 Docusate Sodium (Docusate Sodium 100 Mg Cap) 100 mg PO BID [facility] Stop: 10/28/21 21:47 Last Admin: 09/29/21 08:40 Dose: 100 mg Documented by: Ceftriaxone Sodium 1,000 mg/ (Dextrose) 50 mls @ 100 mls/hr IV Q24H [facility]; Protocol Stop: 10/09/21 19:59 Levothyroxine Sodium (Levothyroxine Sodium 100 Mcg Tablet) 100 mcg PO DAILYBB [facility] Stop: 10/29/21 06:29 Last Admin: 09/29/21 05:22 Dose: 100 mcg Documented by: Liothyronine Sodium (Liothyronine Sodium 25 Mcg Tab) 12.5 mcg PO TID [facility] Stop: 10/28/21 21:47 Last Admin: 09/29/21 09:15 Dose: 12.5 mcg Documented by: Ondansetron HCl (Ondansetron Inj 2 Mg/Ml 2 Ml Vial) 4 mg IV Q6H PRN PRN Reason: Nausea Stop: 10/28/21 21:47 Oxycodone/Acetaminophen (Oxycodone/Acetaminophen 5mg/325mg Tab) 1 tab PO Q4H PRN PRN Reason: Pain Stop: 10/12/21 23:23 Last Admin: 09/29/21 05:22 Dose: 1 tab Documented by: Polyethylene Glycol (Polyethylene (Miralax) 17 Gm Pack) 17 gm PO DAILY PRN PRN Reason: Constipation Stop: 10/28/21 22:47 Prenat Multivit/Dispatcher Service/Iron/Folic Ac ( Vitamin 1 Tab) 1 tab PO DAILY [facility] Stop: 10/29/21 08:59 Last Admin: 09/29/21 08:40 Dose: 1 tab Documented by:
[2021-09-29] MEDS: ACETAMINOPHEN 500 MG TAB PO PRN ×2 (13:39→21:14)
[2021-09-29] MEDS ORDERED: cefTRIAXone SODIUM 1,000 MG in DEXTROSE 5% 50 ML IV ONE (15:00)
[2021-09-29] MEDS: POLYETHYLENE (MIRALAX) 17 GM PACK PO PRN (16:58)
--- NOTE | 2021-09-29 18:44 | Billing Data ---
Date of Service September 29, 2021 Coding Level of Care Code 30331 Subseq Hosp Care Lvl 3
[2021-09-29] MEDS ORDERED: cefTRIAXone SODIUM 1,000 MG in DEXTROSE 5% 50 ML IV SCH (20:00)
[2021-09-29] MEDS ORDERED: SOD PHOSPHATE/SOD BIPHOSPHATE ENEMA 132 ML BTL PR STA (20:24)
[2021-09-29] MEDS ORDERED: bisacodyL 10 MG SUPP PR STA (20:25)
[2021-09-30] MEDS: oxyCODONE/ACETAMINOPHEN 5mg/325mg TAB PO PRN (00:23)
[2021-09-30] MEDS: POLYETHYLENE (MIRALAX) 17 GM PACK PO PRN (03:59)
[2021-09-30] MEDS: LEVOTHYROXINE SODIUM 100 MCG TABLET PO SCH (05:24)
[2021-09-30] MEDS ORDERED: POLYETHYLENE (MIRALAX) 17 GM PACK PO PRN (08:03)
[2021-09-30 08:10] LABS: Basophils # (auto) 0.02 K/uL (0-0.2); Basophils % (auto) 0.2 %; Eosinophils # (auto) 0.16 K/uL (0-0.5); Eosinophils % (auto) 1.3 %; Hematocrit (blood only) 32.1 % (37-47); Immature Granulocytes # (auto) 0.08 K/uL (0.00-0.02); Immature Granulocytes % (auto) 0.6 %; Lymphocytes % (auto) 14.9 %; Mean Corpuscular Hgb Conc 34.3 g/dL (32-36); Mean Corpuscular Volume 87.5 fL (80-100); Mean Platelet Volume 9.2 fL (7.4-10.4); Monocytes # (auto) 1.72 K/uL (0.11-0.59); Monocytes % (auto) 13.5 %; Neutrophils # (auto) 8.88 K/uL (1.4-6.5); Neutrophils % (auto) 69.5 %; Platelet Count 364 K/uL (130-400); RDW Coefficient of Variation 13.1 % (11.5-14.5); RDW Standard Deviation 41.7 fL (36.4-46.3); Red Blood Count 3.67 M/uL (4.2-5.4); White Blood Count 12.76 K/uL (4.8-10.8)
[2021-09-30 08:34] LABS: BUN Creatinine Ratio 9.3 (10-20); Calcium 8.7 mg/dl (8.5-10.1); Est GFR (African American) 105.8 ml/min; Est GFR (Non-African American) 91.3 ml/min; Potassium 3.8 mmol/L (3.5-5.1)
[2021-09-30] MEDS: DOCUSATE SODIUM 100 MG CAP PO SCH (08:34)
[2021-09-30] MEDS: PRENATAL VITAMIN 1 TAB PO SCH (08:34)
[2021-09-30] MEDS: LIOTHYRONINE SODIUM 25 MCG TAB PO SCH (08:35)
--- NOTE | 2021-09-30 08:45 | Obstetrical Progress Note ---
Date of Service September 30, 2021 Assessment & Plan (1) with 29 completed weeks gestation: (2) Bilateral hydronephrosis: (3) Acute pyelonephritis in third trimester, antepartum: Plan: nst reactive Admission and Anticipated Discharge Date Admission Date: September 28, 2021 Subjective 29 weeks admitted to medicine, we are doing nsts. nst from today reactive. this was done at midnight. change frequency to q day. Physical Exam Genitourinary: nst reactive Results & Data ([facility]) Vital Signs (Past 12 Hours) Vital Signs Temp Pulse Resp BP 09/30/21 05:20 97.9 F 82 18 122/78 09/30/21 00:05 98.1 F 83 18 127/73 PG Care Time/CCT Total # of Minutes Spent Total Time Spent with Patient: Total time spent is greater than 50% in coordination of care (as documented) at patient's floor/unit and/or counseling patient: Coding Level of Care Code None Diagnoses with 29 completed weeks gestation Z3A.29 Bilateral hydronephrosis N13.30 Acute pyelonephritis in third trimester, antepartum O23.03; N10 CPT Codes Misx Procedure Codes - 60180 NST: 82933 NST ([id number]) [facility] Miscellaneous Codes Misx Procedure Codes 07396 NST
--- NOTE | 2021-09-30 09:32 | Hospitalist Progress Note ---
Date of Service September 30, 2021 Assessment & Plan (1) with 29 completed weeks gestation: (2) Bilateral hydronephrosis: (3) Constipation: (4) Acute pyelonephritis in third trimester, antepartum: (5) Hypothyroid in , antepartum: (6) Migraine headache: Plan: Summary: 31 y/o F at 29 weeks and 0/7 days with uncomplicated course who presents with L-sided flank pain, leukocytosis, BL hydronephrosis who was started on IV ceftriaxone 1g and analgesia out of concern for likely pyelonephritis. #Pyelonephritis in 3rd trimester of -supported by L-sided flank pain, leukocytosis. Risk factors include , BL hydronephrosis. Pt was informed by OB about risk factors of pyelo during which include PTL. -It is reassuring that sx are improving and her Cr is stable. Has been tolerating PO fluids. -Blood culture to date shows no growth, urine culture showed pinpoint growth and is reincubating.Currently day 3 of ABX. Can convert to PO cefdinir today 09/30/21, and she can take 1 dose PO before discharge. #Hypothyroidism: stable as per last TSH 2 weeks ago per patient. Managed by her PCP in [place]. Will get monthly TSH checks for remainder of . Continue levothyroxine 100mcg PO daily, and liothyronine 12.5 mcg TID. Currently not having any symptoms. #constipation: no BM since admission, continue Colace, PRN Miralax was added. Encouraged to continue with plenty of PO fluids and ambulating as tolerated. She has also been drinking prune juice. #migraines: stable, is aware to avoid triptans and use acetaminophen during #FENGI: PO as tolerated, normal diet #DVT prophylaxis: encourage ambulation as tolerated #Disposition: pt is hemodynamically stable, no evidence of sepsis/bacteremia. Blood culture to date shows no growth, urine culture showed pinpoint growth and is reincubating. Switch to PO cefdinir today 09/30, 300mg BID with or without food upon discharge to complete ABX course which should total 10 days. After completing abx course would recommend a repeat a UA w/ urine culture, which is standard for patients. Regarding analgesia, her pain has improved, and she is OK with acetaminophen only. Did not feel she needed Percocet prescription upon discharge. Full code Admission and Anticipated Discharge Date Admission Date: September 28, 2021 Subjective CC: L-sided flank plain, dysuria, frequency HPI: Pt is a 31 y/o F at 30 weeks 0/7 days with PMHx of hypothyroidism and migraine SCHULTZ. prior to current admission has been uncomplicated except for constipation. She receives OB care at [facility] and primary care in [place], where her hypothyroidism is managed (TSH checked every month). Pt has a remote history of UTI several years ago. Her L-sided flank pain, dysuria and frequency began on the morning of 09/28 around 10am, and by 2pm that day her pain became unbearable. Dr. Doherty with [facility] prescribed nitrofurantoin 100mg PO q12, but pt was later advised to come to ED as her pain increased in severity. Pt did not report any vaginal bleeding, discharge, LOF, and notes good movement. Home meds include levothyroxine 100mcg PO daily, liothyronine 12.5 mcg TID, and Colace. Allergies: amoxicillin In the ED, pt was afebrile, tachycardic at 122, otherwise VS were WNL. Pt was started on IV fluids, IV ceftriaxone 1g q24 hours, and IV acetaminophen 1g, and AZO. AM vitals as of 09/29/21 were T 36.7C, HR 91, RR 18, BP 115/73, SpO2 99% on RA monitoring stable per OB, nursing Today pt notes that since we last spoke yesterday she had an episode of pain that was bout 8-9/10 in severity. She thinks constipation is contributing to her pain as she has not had a bowel movement since admission. After the pain exacerbation she did take Percocet around midnight on 09/30 which helped her sleep. Sleeping also boosted her mood. Overall she does appreciates sx improvement with IV ceftriaxone. Her dysuria has resolved but urinary frequency persists. No bloody urine. She notes that ambulating and showering alleviate her flank pain, but sitting for too long exacerbates it. Her pain does not radiate. Continues to deny subjective fevers, chills, SOB, chest pain, syncope and ankle swelling. Her NSTs have been stable per OB and she notes good movement, no loss of fluid, no vaginal bleeding/discharge. Review of Systems Review of Systems: see above Physical Exam Eyes: PERRL, conjunctivae normal, anicteric sclerae Respiratory: normal respiratory effort, lungs clear to auscultation Cardiovascular: RRR, no murmur, no edema Musculoskeletal: +L flank pain/CVA tenderness Skin: no rashes, warm and dry Neurologic: PERRL, EOMI, accommodation nl, no face palsy, no dysarthria Psychiatric: A+Ox3, euthymic affect Lymphatic: no LE edema Results & Data Results & Data ([facility]) Vital Signs (Past 12 Hours) Vital Signs Temp Pulse Resp BP Pulse Ox 09/30/21 07:45 36.8 C 92 H 16 135/89 97 09/30/21 05:20 36.6 C 82 18 122/78 09/30/21 00:05 36.7 C 83 18 127/73 Laboratory Results Abnormal lab results 09/30/21 09/30/21 Range/Units 07:54 07:54 WBC 12.76 H (4.8-10.8) K/uL RBC 3.67 L (4.2-5.4) M/uL Hgb 11.0 L (12.0-16.0) g/dL Hct 32.1 L (37-47) % Neut # (Auto) 8.88 H (1.4-6.5) K/uL [place] # (Auto) 1.72 H (0.11-0.59) K/uL Immature Gran # (Auto) 0.08 H (0.00-0.02) K/uL Sodium 135 L (136-145) mmol/L BUN/Creatinine Ratio 9.3 L (10-20) Medications Administered Current Inpatient Medications Acetaminophen (Acetaminophen 500 Mg Tab) 1,000 mg PO Q8H PRN PRN Reason: Pain Stop: 10/28/21 23:31 Last Admin: 09/29/21 21:14 Dose: 1,000 mg Documented by: Docusate Sodium (Docusate Sodium 100 Mg Cap) 100 mg PO BID [facility] Stop: 10/28/21 21:47 Last Admin: 09/30/21 08:34 Dose: 100 mg Documented by: Levothyroxine Sodium (Levothyroxine Sodium 100 Mcg Tablet) 100 mcg PO DAILYBB [facility] Stop: 10/29/21 06:29 Last Admin: 09/30/21 05:24 Dose: 100 mcg Documented by: Liothyronine Sodium (Liothyronine Sodium 25 Mcg Tab) 12.5 mcg PO TID [facility] Stop: 10/28/21 21:47 Last Admin: 09/30/21 08:35 Dose: 12.5 mcg Documented by: Ondansetron HCl (Ondansetron Inj 2 Mg/Ml 2 Ml Vial) 4 mg IV Q6H PRN PRN Reason: Nausea Stop: 10/28/21 21:47 Last Admin: 09/29/21 13:59 Dose: 4 mg Documented by: Oxycodone/Acetaminophen (Oxycodone/Acetaminophen 5mg/325mg Tab) 1 tab PO Q4H PRN PRN Reason: Pain Stop: 10/12/21 23:23 Last Admin: 09/30/21 00:23 Dose: 1 tab Documented by: Polyethylene Glycol (Polyethylene (Miralax) 17 Gm Pack) 34 gm PO DAILY PRN PRN Reason: Constipation Stop: 10/28/21 22:47 Last Admin: 09/30/21 08:52 Dose: 34 gm Documented by: Felicitaat Multivit/[employer]rap [employer]her/Iron/Folic Ac ( Vitamin 1 Tab) 1 tab PO DAILY [facility] Stop: 10/29/21 08:59 Last Admin: 09/30/21 08:34 Dose: 1 tab Documented by:
[2021-09-30] MEDS: ACETAMINOPHEN 500 MG TAB PO PRN (10:34)
--- NOTE | 2021-09-30 16:38 | Discharge Summary ---
Date of Service September 30, 2021 Admission HPI Per Admitting Provider Marialuisa Velazco is a 31yo G1PO female, currently at 29 5/7 weeks gestation, with PMHx significant for hypothyroidism (on Synthroid and Cytomel) who presented to [facility] ED on 09/28 for dysuria, increased urinary frequency/urgency and moderate- severe left flank pain x1 day. Symptoms started this morning. She called [facility] and was prescribed Macrobid and took first dose earlier today. She was then told to come to the ED for evaluation. She denies fever/chills or nausea/vomiting. Has had slightly decreased PO intake today due to pain. Denies recent URI symptoms or rash. Has not had previous UTI during this . has been uncomplicated overall. Denies leakage of fluid, vaginal bleeding, or lower abdominal pain. Reports that baby has been moving normally. In the ED the patient was tachycardic to 122bpm but was afebrile and normotensive. Laboratory evaluation is significant for WBC 21.5 with neutrophilic predominance and left shift, Na 133, K 3.3. UA positive for nitrites and trace LE. Urine culture pending. Renal US showed moderate to severe bilateral hydronephrosis, R>L. Patient was given Tylenol 1g IV x1 which led to significant improvement in pain. CTX 1g IV was given. Of note blood cx was taken only AFTER the abx were started, although urine cx was thankfully taken before abx. Admission Exam (Per Admitting) Constitutional Physical Exam: General: A&Ox3. NAD. Cooperative. HEENT: Atraumatic, normocephalic. Pulm: CTAB A&P. -wheezes, -rales, -rhonchi. Symmetrical chest rise. No increase work of breathing. No respiratory distress. Cardiac: RRR, -mrg. Radial pulses intact and symmetrical. No LE edema. Cap refill <3 seconds. Abdominal: gravid but non-tender, normoactive bowel sounds Back: left CVA tenderness only Skin: warm, dry, no rash Discharge Data Consultations 09/28/21 21:48 Consult Obstetrics Routine Hospital Course (1) with 29 completed weeks gestation: (2) Bilateral hydronephrosis: (3) Acute pyelonephritis in third trimester, antepartum: (4) Constipation: (5) Hypothyroid in , antepartum: (6) Migraine headache: Summary: 31 y/o F at 29 weeks and 0/7 days with uncomplicated course who presents with L-sided flank pain, leukocytosis, BL hydronephrosis who was started on IV ceftriaxone 1g and analgesia out of concern for likely pyelonephritis. #Pyelonephritis in 3rd trimester of - noted BL hydronephrosis on ultrasound likely secondary to -Ceftriaxone IV x 3 days, discharged on PO cefdinir for a total of 10 days duration -Blood culture to date shows no growth, urine culture showed pinpoint growth and is reincubating. -recommend repeat UA/urine culture after antibiotic completion #, 3rd trimester -during hospital stay, noted good movement. No LOF, contractions, vaginal bleeding/discharge, or contractions -daily NSTs were reassuring and Marialuisa was seen by OB #constipation: no BM during admission, continue Colace, PRN Miralax was added. Encouraged to continue with plenty of PO fluids and ambulating as tolerated. She has also been drinking prune juice. All other medical conditions managed per home regimens. Supervising Physician Co-Signing Physician Notes I personally examined the patient and verified all pineda points of history and exam, discussed case, and agree with decision making with Solitario Mancera MS2 feeling up to going home vitals noted nad heent nc at mmm breathin gunlabored no accessory muscles good effort skin no rashes no pallor or icterus neuro no focal deficits pyelo / sepsis on admssion - rocephin - improving. stable for home. PO cefdinir constipation - miralax, stable for home otherwise as above
--- NOTE | 2021-09-30 18:43 | Billing Data ---
Date of Service September 30, 2021 Coding Level of Care Code D/C DAY MANAGEMENT <30 MINS
== END 2021-09-30 12:45 | disposition home or self-care (01) | DRG 832 ==
LOC: ED 18:14 → 4S2 21:38 → SUATTDRO 21:38 → 4S2 23:17

== ENCOUNTER 2021-11-26 19:03 | Inpatient (IN) ==
[2021-11-26] MEDS ORDERED: OXYTOCIN 30 UNITS/500 ML BAG IV PRN ×2 (19:17→20:13)
[2021-11-26 19:49] LABS: Hematocrit (blood only) 31.4 % (37-47); Hemoglobin 10.6 g/dL (12.0-16.0); Mean Corpuscular Hgb Conc 33.8 g/dL (32-36); Mean Corpuscular Volume 82.8 fL (80-100); Mean Platelet Volume 9.9 fL (7.4-10.4); Platelet Count 370 K/uL (130-400); RDW Coefficient of Variation 13.7 % (11.5-14.5); RDW Standard Deviation 41.3 fL (36.4-46.3); Red Blood Count 3.79 M/uL (4.2-5.4)
[2021-11-26 20:19] LABS: Alanine Aminotransferase 14 U/L (7-52); Albumin Level 3.4 gm/dl (3.4-5.0); Alkaline Phosphatase 181 U/L (34-104); Anion Gap 8 (3-11); Aspartate Aminotransferase 23 U/L (13-39); BUN Creatinine Ratio 30.2 (10-20); Bilirubin,Total 0.3 mg/dl (0.2-1.0); Blood Urea Nitrogen 13 mg/dl (6-23); Calcium 8.8 mg/dl (8.5-10.1); Carbon Dioxide 21 mmol/L (21-32); Chloride 107 mmol/L (98-107); Creatinine Clr Calc Pharmacy 201.3 ml/min; Est GFR (African American) > 150.0 ml/min; Est GFR (Non-African American) 137.4 ml/min; Globulin 3.3 gm/dl (2.5-4.0); Glucose 86 mg/dl (70-99(Fasting)); Potassium 3.7 mmol/L (3.5-5.1); Sodium 136 mmol/L (136-145); Total Protein 6.7 gm/dl (6.0-8.3)
[2021-11-26] MEDS: LACTATED RINGER'S 1,000 ML IV PRN (20:40)
--- NOTE | 2021-11-26 20:51 | History & Physical Report ---
Date of Service November 26, 2021 Assessment & Plan (1) Gestational hypertension: Plan: IUP at 38 1/7 weeks who meets criteria for gestational HTN today, PET labs are pending cervical balloon placed because of unfavorable cervix low dose pitocin begun anticipate vaginal (2) Encounter for induction of labor: (3) Unfavorable cervix in term : Admission and Anticipated Discharge Date Admission Date: November 26, 2021 History of Present Illness Primary Care Provider: Jessica Norton MD Patient is a 31 yo white female EDC 12/09/21 who presents at 38 1/7 weeks for routine OB visit today and was noted to have elevated BP - she had a similar BP elevation several weeks ago so she meets criteria for the diagnosis of gestational HTN. she denies any PET symptoms. urine was negative for protein. had been complicated by hypothyroidism and Migraine headaches. GBS is negative. Allergies Allergy/AdvReac Type Severity Reaction Status Date / Time amoxicillin Allergy Intermediate Hives Verified 11/26/21 15:45 Home Medications Medication Instructions Recorded Confirmed Type prenat.vits,sia,rwu-xpoc-zgcsd 1 tab PO DAILY 04/25/21 11/26/21 History levothyroxine 100 mcg tablet 100 mcg PO DAILYBB 09/28/21 11/26/21 History liothyronine 25 mcg tablet 12.5 mcg PO TID 09/28/21 11/26/21 History Patient History Medical History (Updated 11/26/21 @ 20:51 by Nhung Gaona MD, FACOG) Abdominal pain Acute pyelonephritis in third trimester, antepartum Bilateral hydronephrosis Dysuria Gestational hypertension Hypothyroidism Infected cat bite Migraine headache Varicella vaccination Surgical History History of colposcopy S/P wisdom tooth extraction Family History Grandmother (Maternal) Stroke Grandmother (Paternal) Stroke Mother Gurvinder's thyroiditis Father Hypertension Denies family history of Colon cancer Ovarian cancer Prostate cancer Myocardial infarction Breast cancer Social History Smoking Status: Never smoker Second Hand Exposure: No; Hx Alcohol Use: No Hx Substance Use: No Preferred Language: Estonian Communication Ability: Effective Visual Impairment: No Limitations Hearing Ability: Normal 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: No Beliefs That Will Affect Care: None marital status: marital status details: Wei Velazco (37) [phone] Current Living Situation: Spouse Current Living Situation Comment: lives with spouse current occupational status: 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 Other Information That Helps Us Care for You: No Feels Safe at Home: Yes Safety Concerns: Feels Safe At This Time Dental Care, Regularly: Yes Physical Activity Frequency: Does not Exercise Assistive Devices: Glasses Review of Systems All systems reviewed & are unremarkable except as noted in HPI & below Physical Exam Constitutional: WD/WN, vitals as above Respiratory: normal respiratory effort, lungs clear to auscultation Cardiovascular: RRR, no murmur, no edema Psychiatric: A+Ox3, euthymic affect Genitourinary: OB Exam Abdomen: + vertex, + estimated weight (6-7 pounds) and + irregular contractions Manual OB Exam: + cervical dilation fingertip, + cervical effacement 70% and + station -1 OB Exam Monitor Tracing: + external FHT monitor used, + external uterine monitor used, + category I and + normal FHT variability cervical balloon placed after visualizing the cervix. 40 cc's water instilled into the balloon. The catheter was then placed on traction and attached to the left thigh. patient tolerated the procedure well. Results & Data ([facility]) Vital Signs (Past 12 Hours) Vital Signs Temp Pulse Resp BP 11/26/21 19:24 131 H 139/79 11/26/21 19:17 99.1 F 16 11/26/21 19:15 99.1 F 16 11/26/21 19:14 113 H 141/89 H Coding Level of Care Code None Diagnoses Gestational hypertension O13.9 Encounter for induction of labor Z34.90 Unfavorable cervix in term O34.40 CPT Codes Misx Procedure Codes - 82302 Placement of cervical dilator: 56434 Placement of cervical dilator ([id number])
[2021-11-26 20:55] LABS: Creatinine Urine Random 39.8 mg/dl; Protein Creatinine Ratio Urine 0.3 (0-0.2); Total Protein Urine Random 10.7 mg/dl (0-11.9)
[2021-11-26] MEDS ORDERED: BUTORPHANOL TARTRATE 1 MG/ML VIAL IV PRN (22:51)
[2021-11-27] MEDS: LACTATED RINGER'S 1,000 ML IV PRN ×3 (04:43→13:31)
--- NOTE | 2021-11-27 06:53 | Obstetrical Progress Note ---
Date of Service November 27, 2021 Assessment & Plan (1) Gestational hypertension: Plan: IUP at 38 2/7 weeks meets criteria for gestational HTN and now mild PET because of elevated urine protein/creatinine ratio. will continue pitocin augmentation of contractions epidural analgesia when requested anticipate vaginal delivery Admission and Anticipated Discharge Date Admission Date: November 26, 2021 Subjective feeling crampy but not painful. BP's had been elevated but now have normalized. no PIH symptoms. labs reviewed and all normal except urine protein/creatinine ratio is 0.3. Review of Systems Review of Systems: All systems reviewed & are unremarkable except as noted in HPI & below Physical Exam Constitutional: WD/WN, vitals as above Psychiatric: A+Ox3, euthymic affect Genitourinary: OB Exam Abdomen: + regular contractions (mild every 4-5 minutes) Manual OB Exam: + cervical dilation 4 cm, + cervical effacement 90% and + station (posterior) -1 OB Exam Monitor Tracing: + external FHT monitor used, + external uterine monitor used, + category I and + normal FHT variability Results & Data ([facility]) Vital Signs (Past 12 Hours) Vital Signs Temp Pulse Resp BP 11/27/21 05:48 87 125/77 11/27/21 04:48 84 121/77 11/27/21 03:53 97 H 128/75 11/27/21 03:52 98.1 F 16 11/27/21 02:48 102 H 142/79 H 11/27/21 01:48 95 H 111/67 11/27/21 00:47 104 H 116/70 11/26/21 23:05 98.2 F 16 11/26/21 23:03 95 H 124/76 11/26/21 22:07 112 H 144/78 H 11/26/21 22:05 105 H 162/77 H 11/26/21 22:02 105 H 165/93 H 11/26/21 20:56 103 H 132/88 11/26/21 19:24 131 H 139/79 11/26/21 19:17 99.1 F 16 11/26/21 19:15 99.1 F 16 11/26/21 19:14 113 H 141/89 H PG Care Time/CCT Total # of Minutes Spent Total Time Spent with Patient: Total time spent is greater than 50% in coordination of care (as documented) at patient's floor/unit and/or counseling patient: Coding Level of Care Code None Diagnoses Gestational hypertension O13.9
[2021-11-27] MEDS: LIOTHYRONINE SODIUM 25 MCG TAB PO SCH ×3 (08:38→21:00)
[2021-11-27] MEDS: LEVOTHYROXINE SODIUM 100 MCG TABLET PO SCH (08:38)
[2021-11-27] MEDS ORDERED: fentaNYL citrate 100 MCG/2 ML VIAL ONE (12:34)
[2021-11-27] MEDS ORDERED: BUPIVACAINE 0.25% 30 ML VIAL ONE (12:34)
[2021-11-27] MEDS ORDERED: SODIUM CHLORIDE 0.9% INJ 10 ML VIAL ONE (12:34)
[2021-11-27] MEDS ORDERED: ePHEDrine sulfate 50 MG/ML AMP ONE (12:34)
[2021-11-27] MEDS ORDERED: fentaNYL 2MCG/ML ROPIVACAINE 1.25MG/ML 100 ML BAG EPI ONE (12:35)
--- NOTE | 2021-11-27 12:59 | Anesthesiology Consultation ---
Date of Service November 27, 2021 Assessment & Plan (1) Encounter for pre-operative examination: Chart Review Chart Review: Acceptable Risk for Surgery and Patient NOT seen in Pre Admission Testing Consults Requested none History Height/Weight Height: 5 ft 5 in Weight: 79.651 kg Allergies Allergy/AdvReac Type Severity Reaction Status Date / Time amoxicillin Allergy Intermediate Hives Verified 11/26/21 15:45 Medications Home Medications Medication Instructions Recorded Confirmed Last Taken prenat.vits,sia,mxm-unud-sbujs 1 tab PO DAILY 04/25/21 11/26/21 11/26/21 08:00 levothyroxine 100 mcg tablet 100 mcg PO DAILYBB 09/28/21 11/26/21 11/26/21 08:00 liothyronine 25 mcg tablet 12.5 mcg PO TID 09/28/21 11/26/21 11/26/21 14:30 Active Medications Generic Name Dose Route Start Last Admin Trade Name Freq PRN Reason Stop Dose Admin Lactated Ringer's 1,000 mls @ 125 mls/hr 11/26/21 19:17 11/27/21 12:32 Lr IV 11/28/21 19:16 999 mls/hr .Q8H PRN Administration L&D Protocol Protocol Oxytocin 30 units in 500 mls @ 14 mls/hr 11/26/21 20:13 11/27/21 10:00 Pitocin IV 11/28/21 20:12 0.96 units/hr .Q24H PRN 16 mls/hr Labor Induction/Augmentation Titration Protocol 0.84 UNITS/HR Levothyroxine Sodium 100 mcg 11/27/21 07:30 11/27/21 08:38 Levothyroxine Sodium 100 Mcg Tablet PO 12/27/21 07:29 100 mcg DAILYBB MAKI Administration Liothyronine Sodium 12.5 mcg 11/27/21 09:00 11/27/21 08:38 Liothyronine Sodium 25 Mcg Tab PO 12/27/21 08:59 12.5 mcg TID MAKI Administration Past Medical History Medical History Abdominal pain Acute pyelonephritis in third trimester, antepartum Bilateral hydronephrosis Dysuria Gestational hypertension Hypothyroidism Infected cat bite Migraine headache Varicella vaccination Past Family History Family History Grandmother (Maternal) Stroke Grandmother (Paternal) Stroke Mother Gurvinder's thyroiditis Father Hypertension Denies family history of Colon cancer Ovarian cancer Prostate cancer Myocardial infarction Breast cancer Past Surgical History Surgical History History of colposcopy S/P wisdom tooth extraction Social History Smoking Status: Never smoker Hx Alcohol Use: No Hx Substance Use: No substance use type: does not use Physical Exam Vital Signs Last Vital Signs Temp 36.8 C 11/27/21 11:30 Pulse 93 H 11/27/21 12:31 Resp 20 11/27/21 11:30 BP 138/94 11/27/21 12:31 Testing Laboratory Results 11/26/21 19:42 11/26/21 19:42
[2021-11-27] MEDS ORDERED: diphenhydrAMINE 50 MG/ML VIAL IV PRN (13:46)
[2021-11-27] MEDS ORDERED: ONDANSETRON INJ 2 MG/ML 2 ML VIAL IV PRN (13:46)
[2021-11-27] MEDS ORDERED: NALOXONE HCL 1 MG in SODIUM CHLORIDE 0.9% 1000ML 1,000 ML IV PRN (13:46)
[2021-11-27] MEDS ORDERED: NALOXONE HCL 0.4 MG/1 ML VIAL/CARP IV PRN (13:46)
[2021-11-27] MEDS ORDERED: ePHEDrine sulfate 50 MG/ML AMP IV PRN (13:46)
[2021-11-27] MEDS ORDERED: NALBUPHINE HCL INJ 10 MG/ML AMP IV PRN (13:46)
[2021-11-27] MEDS ORDERED: fentaNYL 2MCG/ML ROPIVACAINE 1.25MG/ML 100 ML BAG EPI PRN (13:46)
--- NOTE | 2021-11-27 14:15 | Labor Progress Brief Note ---
Date of Service November 27, 2021 Subjective Comfortable with epidural. FHT Cat 1 Tat Momoli Q 2 SVE 5-6/70/-2 AROM clear fluid. Continue labor. Assessment & Plan Admission and Anticipated Discharge Date Admission Date: November 26, 2021 Results & Data ([facility]) Vital Signs (Past 12 Hours) Vital Signs Temp Pulse Resp BP Pulse Ox 11/27/21 14:09 97 H 94 11/27/21 14:07 92 H 150/79 H 100 11/27/21 14:03 100 H 136/73 11/27/21 14:02 107 H 99 11/27/21 13:58 107 H 139/77 11/27/21 13:57 106 H 98 11/27/21 13:52 110 H 99 11/27/21 13:50 120 H 148/89 H 11/27/21 13:48 126 H 157/100 H 11/27/21 13:47 125 H 99 11/27/21 13:46 109 H 134/75 11/27/21 13:44 121 H 141/87 H 11/27/21 13:42 113 H 132/69 99 11/27/21 13:40 110 H 128/65 11/27/21 13:38 110 H 143/80 H 11/27/21 13:37 115 H 99 11/27/21 13:36 114 H 153/81 H 11/27/21 13:35 123 H 161/93 H 11/27/21 13:32 111 H 139/65 99 11/27/21 13:30 100 H 137/80 11/27/21 13:27 99 H 99 11/27/21 13:22 106 H 99 11/27/21 13:21 108 H 91 11/27/21 13:17 107 H 99 11/27/21 13:12 116 H 141/88 H 100 11/27/21 12:31 93 H 138/94 11/27/21 11:30 36.8 C 90 20 139/90 11/27/21 10:30 84 140/91 11/27/21 09:16 98 H 135/87 11/27/21 08:27 96 H 136/81 11/27/21 07:33 36.3 C L 100 H 20 96/42 L 11/27/21 07:00 106 H 158/76 H 04/28/22 05:48 87 125/77 11/27/21 04:48 84 121/77 11/27/21 03:53 97 H 128/75 11/27/21 03:52 36.7 C 16 11/27/21 02:48 102 H 142/79 H Coding Level of Care Code None
--- NOTE | 2021-11-27 17:54 | Delivery Summary ---
Vaginal Delivery Summary Date of Service November 27, 2021 Vaginal Delivery Summary [facility] Vaginal Delivery Summary: Pre-delivery diagnoses: 31yo @ 38 2/, IOL for gHTN Post-delivery diagnoses: same Procedure: spontaneous vaginal delivery Surgeon: Lilliana Emery DO Complications: none Findings: Viable female . Apgars: 8/9. Weight pending, please see nursery records. Estimated blood loss: 300ml Description of delivery: The patient progressed to complete with epidural anesthesia. She then began to push. She spontaneously vaginally delivered a viable from the cephalic presentation. The head delivered in SRIDHAR position. The anterior shoulder delivered, followed by the posterior shoulder, followed by the body. The baby was placed on mother's abdomen and a spontaneous cry was heard. Delayed cord clamping was employed, and the cord was doubly clamped and cut. Cord blood was obtained. The placenta was delivered spontaneously intact with a 3-vessel cord. The uterus and vagina were swept of clots and debris. IV pitocin was given. The uterus became firm. The cervix, vagina, and perineum were inspected and no lacerations were noted, except a small right periurethral that was bleeding - this was made hemostatic with a single vqaagg-[id number] stitch of 3-0 vicryl. Excellent hemostasis was observed. The mother and baby are recovering in stable and good condition in the room. Sponge, needle and instrument counts were correct x 2. Lilliana Emery DO [facility] [place] Charge Vaginal Delivery Codes: 57665 global code for the antepartum, delivery, and post- Delivery Type Details: [facility]
[2021-11-27] MEDS ORDERED: OXYTOCIN 30 UNITS/500 ML BAG IV PRN (17:59)
[2021-11-27] MEDS ORDERED: DIPHTHERIA/TETANUS/PERTUSSIS 0.5 ML SYR/VIAL IM ONE (17:59)
[2021-11-27] MEDS ORDERED: BENZOCAINE 20% AER SPR 82.5 GM CAN EXT PRN (17:59)
[2021-11-27] MEDS ORDERED: oxyCODONE/ACETAMINOPHEN 5mg/325mg TAB PO PRN (17:59)
[2021-11-27] MEDS ORDERED: bisacodyL 10 MG SUPP PR PRN (17:59)
[2021-11-27] MEDS ORDERED: HYDROCORTISONE ACETATE 25 MG SUPP PR PRN (17:59)
--- NOTE | 2021-11-27 18:45 | Anesthesia Procedure Note ---
Date of Service November 27, 2021 Anesthesia Post Epidural Note Vital Signs Vital Signs: Temp Pulse Resp BP Pulse Ox 36.9 C 112 H 20 130/63 79 L 11/27/21 16:31 11/27/21 18:37 11/27/21 18:35 11/27/21 18:37 11/27/21 17:32 Notes Mental Status: alert / awake / arousable and participated in evaluation Nausea / Vomiting: adequately controlled Pain: adequately controlled Airway Patency, RR, SpO2: stable & adequate BP & HR: stable & adequate Hydration State: stable & adequate Neuraxial Anesthesia: was administered and sensory block is resolving Anesthetic Complications: no major complications apparent and Pt Satisfied with anesthetic care Epidural: Removed without complications and With tip intact Notes: Epidural site clean, dry and intact. No signs of edema, erythema or bruising at insertion site. Pt instructed to request anesthesia if she has residual lower extremity numbness or if she develops lower extremity pain or weakness, back pain or headache.
[2021-11-27] MEDS: ACETAMINOPHEN 325 MG TAB PO PRN (20:48)
[2021-11-27] MEDS: IBUPROFEN 600 MG TAB PO PRN (20:48)
[2021-11-27] MEDS: DOCUSATE SODIUM 100 MG CAP PO SCH (21:00)
[2021-11-28] MEDS: IBUPROFEN 600 MG TAB PO PRN ×3 (03:07→18:18)
[2021-11-28 06:26] LABS: Hematocrit (blood only) 28.5 % (37-47); Hemoglobin 9.1 g/dL (12.0-16.0); Mean Corpuscular Hemoglobin 27.2 pg (25-34); Mean Corpuscular Hgb Conc 31.9 g/dL (32-36); Mean Corpuscular Volume 85.3 fL (80-100); Mean Platelet Volume 9.7 fL (7.4-10.4); Platelet Count 293 K/uL (130-400); RDW Coefficient of Variation 14.1 % (11.5-14.5); RDW Standard Deviation 43.8 fL (36.4-46.3); Red Blood Count 3.34 M/uL (4.2-5.4); White Blood Count 13.77 K/uL (4.8-10.8)
[2021-11-28] MEDS: LEVOTHYROXINE SODIUM 100 MCG TABLET PO SCH (06:28)
--- NOTE | 2021-11-28 07:38 | Obstetrical Progress Note ---
Date of Service November 28, 2021 Assessment & Plan (1) Gestational hypertension: PPD#1 doing well. Anticipate DC home tomorrow. Subjective Ambulation: ambulating normally Voiding: no voiding problems Diet Tolerance:: regular diet Lochia:: Moderate well Review of Systems All systems reviewed & are unremarkable except as noted in HPI & below Physical Exam Constitutional WD/WN, vitals as above no acute distress Respiratory normal respiratory effort Cardiovascular Rate/Rhythm: regular rate and regular rhythm Gastrointestinal (Abdomen) Inspection/Auscultation: abdomen normal to inspection; abdomen not distended Percussion/Palpation: abdomen soft Genitourinary OB Exam Abdomen: + fundal height Fundus: + firm; not tender Results & Data ([facility]) Vital Signs (Past 12 Hours) Vital Signs Temp Pulse Pulse Resp BP BP Pulse Ox 11/28/21 03:46 36.7 C 103 H 20 116/72 98 11/27/21 22:40 36.8 C 100 H 20 108/68 98 11/27/21 19:58 36.9 C 18 11/27/21 19:53 166 H 103/48 L
[2021-11-28] MEDS: DOCUSATE SODIUM 100 MG CAP PO SCH ×2 (08:32→20:35)
[2021-11-28] MEDS: PRENATAL VITAMIN 1 TAB PO SCH (08:32)
[2021-11-28] MEDS: LIOTHYRONINE SODIUM 25 MCG TAB PO SCH ×3 (08:32→20:35)
[2021-11-28] MEDS: ACETAMINOPHEN 325 MG TAB PO PRN (11:55)
[2021-11-28] MEDS ORDERED: bisacodyL 5 MG TABEC PO SCH (20:00)
[2021-11-29] MEDS: IBUPROFEN 600 MG TAB PO PRN (05:58)
[2021-11-29] MEDS: LEVOTHYROXINE SODIUM 100 MCG TABLET PO SCH (05:58)
[2021-11-29 06:53] LABS: Hematocrit (blood only) 28.1 % (37-47); Hemoglobin 9.2 g/dL (12.0-16.0)
[2021-11-29] MEDS: PRENATAL VITAMIN 1 TAB PO SCH (07:51)
[2021-11-29] MEDS: DOCUSATE SODIUM 100 MG CAP PO SCH (07:51)
[2021-11-29] MEDS: LIOTHYRONINE SODIUM 25 MCG TAB PO SCH (07:51)
--- NOTE | 2021-11-29 08:00 | Obstetrical Progress Note ---
Date of Service November 29, 2021 Assessment & Plan (1) Gestational hypertension: (2) Vaginal delivery: Doing well. Plan d/c. Instructions given. O+, RI. Continue thyroid meds. Day #:: 2 Subjective Ambulation: ambulating normally Voiding: no voiding problems Passing Gas:: Yes Diet Tolerance:: regular diet Lochia:: Small Feeding Type:: breast feeding Feels well. No significantly elevated blood pressures overnight. Anxious to get home. Physical Exam Constitutional WD/WN, vitals as above Cardiovascular Extremities: no calf tenderness and no edema Gastrointestinal (Abdomen) soft, nt, nd, ff/nt at u Results & Data ([facility]) Vital Signs (Past 12 Hours) Vital Signs Temp Pulse Resp BP Pulse Ox 11/28/21 23:15 36.7 C 97 H 16 125/76 98
== END 2021-11-29 10:50 | disposition home or self-care (01) | DRG 807 ==
LOC: OPB 19:03 → 4S1 19:04 → 4E2 11-27 21:14

== ENCOUNTER 2024-04-12 09:45 | Inpatient (IN) ==
[2024-04-12] MEDS ORDERED: OXYTOCIN 30 UNITS/NSS 30 UNITS/500 ML BAG IV PRN (09:47)
[2024-04-12] MEDS ORDERED: LIDOCAINE 1% LOCAL 20 ML VIAL INFIL PRN (09:47)
[2024-04-12] MEDS: LACTATED RINGER'S 1,000 ML IV PRN (09:58)
--- NOTE | 2024-04-12 10:17 | Anesthesiology Consultation ---
Date of Service April 12, 2024 Assessment & Plan (1) Encounter for pre-operative examination: Chart Review Chart Review: Acceptable Risk for Labor Epidural (labs pending) History Allergies Allergy/AdvReac Type Severity Reaction Status Date / Time amoxicillin Allergy Intermediate Hives Verified 04/06/24 09:54 Medications Home Medications Medication Instructions Recorded Confirmed Last Taken 21-iron fu-folic acid PO 09/10/23 04/06/24 Unknown [ Complete] levothyroxine 125 mcg tablet 125 mcg PO DAILY #30 tabs 11/19/23 04/06/24 Unknown Past Medical History Medical History Ectopic Bilateral hydronephrosis Acute pyelonephritis in third trimester, antepartum Dysuria Varicella vaccination Infected cat bite Abdominal pain Constipation Past Family History Family History Grandmother (Maternal) Stroke Grandmother (Paternal) Stroke Mother Gurvinder's thyroiditis Father Hypertension Denies family history of Colon cancer Ovarian cancer Prostate cancer Myocardial infarction Breast cancer Past Surgical History Surgical History History of colposcopy S/P wisdom tooth extraction Social History Smoking Status: Never smoker Do You Dip or Chew Tobacco: No Hx Alcohol Use: No Hx Substance Use: No substance use type: does not use Physical Exam Vital Signs Last Vital Signs Temp 36.9 C 04/12/24 10:01 Pulse 90 04/12/24 10:14 Resp 18 04/12/24 10:01 BP 125/86 04/12/24 10:01 Pulse Ox 88 L 04/12/24 10:14
--- NOTE | 2024-04-12 10:19 | History & Physical Report ---
Date of Service April 12, 2024 Assessment & Plan (1) Hypothyroid in , antepartum: (2) Encounter for supervision of normal intrauterine in multigravida, antepartum: Plan Marialuisa is a 33 y/o female currently at 38W 5D GA with an LINDA 04/25/24 as determined by LMP who is here for progression of contractions . Her was complicated by hypothyroidism and and GHTN with prior . Pt's vital are stable, no GHTN noted at this time. Pt is GBS negative. Consult anesthesiology for epidural per pt request Monitor vitals and FHT History of Present Illness Primary Care Provider: REUBEN Rivera Marialuisa is a 33 y/o female currently at 38W 5D GA with an LINDA 04/25/24 as determined by LMP who is here for labor. Her was complicated by hypothyroidism and and GHTN with prior . Regular 3-4 minutes contractions; regular movement; no fluid loss; no bloody show External FHT and external uterine monitors used; Category 1 tracing; moderate FHT variability. Had regular appointments with OB. Labs: (09/21/23) Blood type: O positive Antibody screen: negative H.4 (today) Hct: 30.9% (today) WBC: 11.4 (today) Plt: 349 (today) Rubella: Immune VDRL/RPR: Non reactive Gonorrhea: Not detected Chlamydia: Not detected HIV: Negative HbSAg: Non reactive GBS: Negative Other screens: cff-DNA: low risk, mln (see scanned documents) Allergies Allergy/AdvReac Type Severity Reaction Status Date / Time amoxicillin Allergy Intermediate Hives Verified 04/06/24 09:54 Home Medications Medication Instructions Recorded Confirmed Type 21-iron fu-folic acid PO 09/10/23 04/06/24 History [ Complete] levothyroxine 125 mcg tablet 125 mcg PO DAILY #30 tabs 11/19/23 04/06/24 Rx Patient History Medical History Ectopic Bilateral hydronephrosis Acute pyelonephritis in third trimester, antepartum Dysuria Varicella vaccination Infected cat bite Abdominal pain Constipation Surgical History History of colposcopy S/P wisdom tooth extraction Family History Grandmother (Maternal) Stroke Grandmother (Paternal) Stroke Mother Gurvinder's thyroiditis Father Hypertension Denies family history of Colon cancer Ovarian cancer Prostate cancer Myocardial infarction Breast cancer Social History Smoking Status: Never smoker Second Hand Exposure: No; Do You Dip or Chew Tobacco: No; Hx Alcohol Use: No Hx Substance Use: No Preferred Language: Macedonian Communication Ability: Effective Visual Impairment: No Limitations Hearing Ability: Normal Corrections Corporal Required: No Beliefs That Will Affect Care: None marital status: marital status details: Wei Velazco (39) [phone] Current Living Situation: Family Current Living Situation Comment: Lives at home with , daughter, and one dog and 2 cats. 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 Denies breast pain. Denies dysuria. Denies headache or changes in vision. Physical Exam Physical Exam: General: Alert, oriented. No acute distress. Cardiac: Regular rate and rhythm, no murmurs/rubs/gallops. Respiratory: Clear to auscultation bilaterally a/p, no wheezes/rales/rhonchi. No increased work of breathing. Symmetrical chest rise. No respiratory distress. Abdomen: Gravid; Pelvic: Dilation 5.5 cm; Effacement 90%; Station -[address] Emery Lower Extremities: No lower extremity edema or swelling. No deep calf pain. Elisa's negative bilaterally Results & Data Vital Signs (Past 12 Hours) Vital Signs Temp Pulse Resp BP Pulse Ox 04/12/24 10:15 97 H 97 04/12/24 10:14 90 88 L 04/12/24 10:10 95 H 100 04/12/24 10:05 106 H 100 04/12/24 10:01 36.9 C 101 H 18 125/86 04/12/24 10:00 101 H 99 Code Status & VTE Plan VTE Prophylaxis Plan VTE Prophylaxis will be ordered: No Supervising Physician Co-Signing Physician Notes Resident Physician Supervision Note: I was present with Dr. Cosme during the history and exam. I discussed the case with the resident and agree with the findings and plan as documented in the note. Any exceptions or clarifications are listed here: 33yo @ 38 08/08, labor, admit to L&D. Desires epidural. Anticipate . Documented By: Lilliana Emery, DO
[2024-04-12 10:21] LABS: Hematocrit (blood only) 30.9 % (37.0-47.0); Hemoglobin 10.4 g/dl (12.0-16.0); Mean Corpuscular Hemoglobin 27.4 pg (25.0-34.0); Mean Corpuscular Hgb Conc 33.7 g/dL (32.0-36.0); Mean Corpuscular Volume 81.5 fL (80.0-100.0); Mean Platelet Volume 10.1 fL (9.4-12.4); Platelet Count 349 K/uL (130-400); RDW Standard Deviation 38.5 fL (36.4-46.3); Red Blood Count 3.79 M/uL (4.20-5.40); White Blood Count 11.41 K/ul (4.8-10.8)
[2024-04-12] MEDS: fentANYL 2 MCG/ML BUPIVacaine 0.125%-NSS 100ML BAG ONE (10:50)
[2024-04-12] MEDS: fentaNYL citrate PF 100 MCG/2 ML VIAL ONE (10:54)
[2024-04-12] MEDS: LIDOCAINE 2%/EPINEPHRINE 1:200,000 20 ML PF ONE (10:54)
[2024-04-12] MEDS: BUPIVACAINE 0.25% PF 30 ML VIAL ONE (10:54)
[2024-04-12] MEDS ORDERED: LIDOCAINE 2% MPF LOCAL 5 ML VIAL EPI PRN (10:59)
[2024-04-12] MEDS ORDERED: fentaNYL citrate PF 100 MCG/2 ML VIAL EPI PRN (10:59)
[2024-04-12] MEDS ORDERED: ePHEDrine sulfate 50 MG/ML AMP IV PRN (10:59)
[2024-04-12] MEDS ORDERED: NALOXONE HCL 1 MG in SODIUM CHLORIDE 0.9% 1,000 ML IV PRN (10:59)
[2024-04-12] MEDS ORDERED: NALOXONE HCL 0.4 MG/1 ML VIAL/CARP IV PRN (10:59)
[2024-04-12] MEDS ORDERED: ROPIVACAINE 0.5% PF 5 MG/ML 20 ML VIAL EPI PRN (10:59)
[2024-04-12] MEDS ORDERED: BUPIVACAINE 0.25% PF 30 ML VIAL EPI PRN (10:59)
[2024-04-12] MEDS ORDERED: ONDANSETRON INJ 2 MG/ML 2 ML VIAL IV PRN (10:59)
[2024-04-12] MEDS ORDERED: SODIUM CHLORIDE 0.9% PF INJ 10 ML VIAL EPI PRN (10:59)
[2024-04-12] MEDS ORDERED: fentANYL 2 MCG/ML BUPIVacaine 0.125%-NSS 100ML BAG EPI PRN (10:59)
[2024-04-12] MEDS: SODIUM CHLORIDE 0.9% PF INJ 10 ML VIAL ONE (13:10)
[2024-04-12] MEDS: ePHEDrine sulfate 50 MG/ML AMP ONE (13:10)
[2024-04-12] MEDS: BUPIVACAINE 0.25% PF 30 ML VIAL EPI STA (13:10)
[2024-04-12] MEDS: fentaNYL citrate PF 100 MCG/2 ML VIAL EPI STA (13:11)
[2024-04-12] MEDS: SODIUM CHLORIDE 0.9% PF INJ 10 ML VIAL EPI STA (13:11)
[2024-04-12] MEDS: LIDOCAINE 2%/EPINEPHRINE 1:200,000 20 ML PF EPI STA (13:11)
--- NOTE | 2024-04-12 13:41 | Labor Progress Brief Note ---
Date of Service April 12, 2024 Subjective Comfortable with epidural. FHT Cat 1 Coyle irreg SVE /-1 AROM clear fluid. Continue labor. Results & Data Vital Signs (Past 12 Hours) Vital Signs Temp Pulse Resp BP Pulse Ox 04/12/24 13:39 79 93 04/12/24 13:35 84 97 04/12/24 13:30 86 100 04/12/24 13:25 100 04/12/24 13:25 78 04/12/24 13:25 81 102/61 04/12/24 13:20 77 100 04/12/24 13:15 82 100 04/12/24 13:10 78 111/70 100 04/12/24 13:05 93 H 100 04/12/24 13:00 78 100 04/12/24 12:55 100 04/12/24 12:55 74 04/12/24 12:55 77 111/72 04/12/24 12:50 78 100 04/12/24 12:45 69 100 04/12/24 12:41 74 114/73 04/12/24 12:40 75 100 04/12/24 12:35 74 100 04/12/24 12:30 72 100 04/12/24 12:26 73 117/75 04/12/24 12:25 69 100 04/12/24 12:20 76 16 100 04/12/24 12:15 85 100 04/12/24 12:11 78 118/82 04/12/24 12:10 84 100 04/12/24 12:05 78 16 100 04/12/24 12:00 75 100 04/12/24 11:56 76 107/64 04/12/24 11:55 76 99 04/12/24 11:50 88 18 99 04/12/24 11:45 78 100 04/12/24 11:40 82 100 04/12/24 11:39 100 04/12/24 11:39 78 04/12/24 11:39 37.0 C 78 16 122/78 04/12/24 11:35 83 18 100 04/12/24 11:33 77 116/78 04/12/24 11:30 86 100 04/12/24 11:28 86 120/78 04/12/24 11:25 89 124/76 100 04/12/24 11:20 93 H 18 100 04/12/24 11:19 88 122/74 04/12/24 11:15 99 H 98 04/12/24 11:13 96 H 118/72 04/12/24 11:10 88 99 04/12/24 11:08 101 H 126/78 04/12/24 11:05 97 H 20 130/71 99 04/12/24 11:03 99 H 124/74 04/12/24 11:01 97 H 124/76 04/12/24 11:00 99 H 20 99 04/12/24 10:59 99 H 127/74 04/12/24 10:57 95 H 130/77 04/12/24 10:56 85 124/73 04/12/24 10:55 90 22 99 04/12/24 10:53 90 132/84 04/12/24 10:51 95 H 129/85 04/12/24 10:50 98 04/12/24 10:50 93 H 04/12/24 10:50 90 132/76 04/12/24 10:48 138/95 04/12/24 10:45 109 H 135/95 98 04/12/24 10:44 111 H 135/95 04/12/24 10:42 105 H 93 04/12/24 10:40 95 H 97 04/12/24 10:35 102 H 100 04/12/24 10:30 104 H 100 04/12/24 10:27 103 H 87 L 04/12/24 10:25 93 H 99 04/12/24 10:20 90 100 04/12/24 10:15 97 H 97 04/12/24 10:14 90 88 L 04/12/24 10:10 95 H 100 04/12/24 10:05 106 H 100 04/12/24 10:01 36.9 C 101 H 18 125/86 04/12/24 10:00 101 H 99 Coding Level of Care Code None
[2024-04-12] MEDS: OXYTOCIN 30 UNITS/NSS 30 UNITS/500 ML BAG IV PRN (14:53)
--- NOTE | 2024-04-12 15:00 | Delivery Summary ---
Vaginal Delivery Summary Date of Service April 12, 2024 Vaginal Delivery Summary [facility] Vaginal Delivery Summary: Pre-delivery diagnoses: 33yo @ 38 08/08, labor, hypothyroidism Post-delivery diagnoses: same Procedure: spontaneous vaginal delivery Surgeon: Lilliana Emery DO Complications: none Findings: Viable male . Apgars: 8/9 . Weight pending, please see nursery records Estimated blood loss: 55cc Description of delivery: The patient progressed to complete with epidural anesthesia. She then began to push. She spontaneously vaginally delivered a viable from the cephalic presentation. The head delivered in ALAINA position. The anterior shoulder delivered, followed by the posterior shoulder, followed by the body. The baby was placed on mother's abdomen and a spontaneous cry was heard. Delayed cord clamping was employed, and the cord was doubly clamped and cut. Cord blood was obtained. The placenta was delivered spontaneously intact with a 3-vessel cord. The uterus and vagina were swept of clots and debris. IV pitocin was given. The uterus became firm. The cervix, vagina, and perineum were inspected and no lacerations were noted. Excellent hemostasis was observed. The mother and baby are recovering in stable and good condition in the room. Sponge and instrument counts were correct x 2. Lilliana Emery DO [facility] Vaginal Delivery Charge Vaginal Delivery Codes: 03639 global code for the antepartum, delivery, and post- Delivery Type Details: [facility]
[2024-04-12] MEDS ORDERED: HYDROCORTISONE ACETATE 25 MG SUPP PR PRN (15:20)
[2024-04-12] MEDS ORDERED: ACETAMINOPHEN 325 MG TAB PO PRN (15:20)
[2024-04-12] MEDS ORDERED: oxyCODONE/ACETAMINOPHEN 5mg/325mg TAB PO PRN (15:20)
[2024-04-12] MEDS ORDERED: bisacodyL 10 MG SUPP PR PRN (15:20)
--- NOTE | 2024-04-12 15:56 | Anesthesia Procedure Note ---
Date of Service April 12, 2024 Anesthesia Post Epidural Note Vital Signs Vital Signs: Temp Pulse Resp BP Pulse Ox 37.0 C 96 H 16 127/80 100 04/12/24 11:39 04/12/24 15:46 04/12/24 12:20 04/12/24 15:46 04/12/24 14:50 Pain Intensity Lower Medial Abdomen: Pain Intensity: 0 Notes Mental Status: alert / awake / arousable and participated in evaluation Nausea / Vomiting: adequately controlled Pain: adequately controlled Airway Patency, RR, SpO2: stable & adequate BP & HR: stable & adequate Hydration State: stable & adequate Neuraxial Anesthesia: was administered and sensory block resolved Anesthetic Complications: no major complications apparent and Pt Satisfied with anesthetic care Epidural: Removed without complications and With tip intact
[2024-04-12] MEDS: IBUPROFEN 600 MG TAB PO PRN (16:22)
[2024-04-12] MEDS: DIPHTHER/TETAN/PERTUS Vaccine (Tdap, Adol/Adult) 0.5mL IM ONE (16:23)
[2024-04-12] MEDS: DOCUSATE SODIUM 100 MG CAP PO SCH (21:57)
[2024-04-12] MEDS: BENZOCAINE 20% SPRY 85 APPLN/85 GM CAN EXT PRN (21:58)
--- NOTE | 2024-04-13 05:43 | Obstetrical Progress Note ---
Date of Service April 13, 2024 Assessment & Plan (1) Encounter for care and examination after delivery: (2) Hypothyroidism: Plan Pt is 33 yo post- day 1 s/p at 38w5d. complicated by hypothyroidism Patient is doing well today, Hbg and vitals are stable Encourage ambulation and breast feeding Continue Levothyroxine 125 mcg Ibuprofen 600mg PRN q4h and Tylenol 600mg PRN q6H for pain control Monitor vitals Pt to discharge today, pt to follow up with Dr. Emery in 6 weeks Admission and Anticipated Discharge Date Admission Date: April 12, 2024 Supervising Physician Co-Signing Physician Notes Resident Physician Supervision Note: I interviewed and examined the patient. Discussed with Dr. Cosme and agree with findings and plan as documented in the note. Any exceptions or clarifications are listed here: PPD#1 doing well. Desires DC home today. Reviewed DC instruc tions, followup in office 6w PP. Documented By: Lilliana Emery, Subjective Pt is 33 yo post- day 1 s/p at 38w5d. complicated by hypothyroidism Ambulation:In and out of room Voiding:voiding normally Passing gas: yes BM: no Diet tolerance:regular diet Lochia:bloody, no clots Feeding type: breast Current pain level: 0-2 /10 improved with ibuprofen Resting comfortably this morning in NAD. Denies SCHULTZ, CP, SOB, N/V/D, LE pain/swelling. Review of Systems Review of Systems: As per HPI Physical Exam Constitutional: WD/WN, vitals as above Respiratory: normal respiratory effort, lungs clear to auscultation Cardiovascular: RRR, no murmur, no edema Gastrointestinal (Abdomen): normal bowel sounds, soft, nontender, no hepatosplenomegaly Uterine fundus firm and at level of umbilicus Neurologic: PERRL, EOMI, accommodation nl, no face palsy, no dysarthria Moving all 4 extremities on command Psychiatric: A+Ox3, euthymic affect Results & Data Vital Signs (Past 12 Hours) Vital Signs Temp Pulse Resp BP Pulse Ox O2 Del Method 04/13/24 03:40 37.0 C 82 20 105/69 98 Room Air 04/13/24 00:00 37.1 C 77 20 109/70 98 Room Air 04/12/24 19:45 36.9 C 91 H 20 108/67 98 Room Air Resident Activity Tracking Resident Involvement: Resident Care Provided Care Provided: Adult Hospital Medicine
[2024-04-13] MEDS: LEVOTHYROXINE SODIUM 125 MCG TABLET PO SCH (05:54)
[2024-04-13 07:02] LABS: Hematocrit (blood only) 27.9 % (37.0-47.0); Hemoglobin 9.1 g/dl (12.0-16.0)
[2024-04-13] MEDS: PRENATAL VITAMIN 1 TAB PO SCH (08:19)
[2024-04-13 12:48] VITALS: BP 112/73; PULSE 95; RESP 18; TEMP 97.9; O2SAT 99
[2024-04-13] MEDS ORDERED: bisacodyL 5 MG TABEC PO SCH (20:00)
== END 2024-04-13 16:04 | disposition home or self-care (01) | DRG 807 ==
LOC: OPB 09:45 → 4S1 09:46 → 4E2 17:20